=== PATIENT | female | born 1935 | race Caucasian/White ===

== ENCOUNTER 2017-03-26 10:45 | Emergency (ER) | payer MEDICARE, OTHER ==
--- NOTE | 2017-03-26 11:48 | EDM.PDOC ---
ED HPI GENERAL MEDICAL PROBLEM - General Chief Complaint: General Stated Complaint: weak, lightheaded Time Seen by Provider: 03/26/17 11:07 Source of Information: Reports: Patient History Limitations: Reports: No Limitations - History of Present Illness INITIAL COMMENTS - FREE TEXT/NARRATIVE: Patient is an 81-year-old female presents to the ER today from therapy with complaints of dizziness/lightheadedness for about the past week. She reports that she had an episode last Friday, 8 days ago, where she got so dizzy and lightheaded that she fell to the ground. Denies injury with the fall. Denied any chest pain, shortness of breath, diaphoresis, nausea, vomiting, or syncope at the time of the fall. Reports that since this episode she has felt "whoozy" and just not felt like herself. She reports that she has felt weak and unable to do her normal activities. She reports that she has had no recent illness. Denies any complaints other than feeling dizzy and weak. Denies any dysuria, but does report she typically experiences frequency and urgency as she is on Lasix. She reports that she was scheduled to have some rehabilitation today but when she got there she reported she was feeling too tired and felt like she couldn't participate. They then recommended that she be seen in the ER so she presented here. At the time of ER presentation patient denies any chest pain or any pain anywhere else. She denies any shortness of breath at rest, but does report that her baseline does include some shortness of breath with exertion. She reports this has may be been a little bit worse than normal. Denies any edema to her extremities at present. Does have a history of pedal edema, for which she has compression stocking on. Denies any nausea, vomiting, shortness of breath or any complaints outside of the dizziness and weakness at the time of ER presentation. Patient does report a history of a "tissue valve replacement" done at [facility] in the past. She is unsure which valve has been replaced. She is anticoagulated with warfarin, and her INR today is 2.7. 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 She daughter does report that on the last time she experienced cardiac symptoms, her troponin was also elevated and further workup indicated this may have been related to her bradycardia. Records are not obtainable by this administrative underwriter at this time. She also reports a history of anxiety. She reports that she does have a prescription for Xanax, but she has not taken this. She does feel slightly anxious at the time of ER visit. Onset Date: 03/18/17 Duration: Day(s): (8), Constant Quality: Reports: Other (lightheadedness, weakness) Improves with: Reports: None Worsens with: Reports: Movement Context: Reports: Activity Associated Symptoms: Reports: Shortness of Breath (with exertion, baseline), Weakness (generalized). Denies: Confusion, Chest Pain, Cough, cough w sputum, Diaphoresis, Fever/Chills, Headaches, Loss of Appetite, Malaise, Nausea/Vomiting , Rash, Seizure, Syncope - Related Data Allergies Allergy/AdvReac Type Severity Reaction Status Date / Time morphine Allergy Redness Verified 03/26/17 10:59 Penicillins Allergy Swelling Verified 03/26/17 10:59 Sulfa (Sulfonamide Allergy Rash Verified 03/26/17 10:59 Antibiotics) Home Meds: Home Meds Furosemide [Lasix] 40 mg PO DAILY 08/01/13 [History] Simvastatin [Zocor] 20 mg PO BEDTIME 08/01/13 [History] Warfarin [Coumadin] 3 mg PO WITHDINNER 08/01/13 [History] Levothyroxine [Synthroid] 125 mcg PO ACBREAKFAST 04/04/15 [History] Calcium Carbonate [Calcium] 1,200 mg PO DAILY 05/06/15 [History] ALPRAZolam [Xanax] 0.25 mg PO Q8H PRN 02/21/16 [History] amLODIPine Besylate [Amlodipine Besylate] 5 mg PO DAILY 02/21/16 [History] Aspirin [Ecotrin] 81 mg PO DAILY 02/05/17 [History] FA/Lycopene/Lut/MV,Ca,Iron,Min [Centrum] 1 each PO DAILY 02/05/17 [History] Propylene Glycol/PEG 400/Pf [Systane 0.3-0.4% Eye Drops] 1 each EYEBOTH BID 11/16 [History] Vitamin B Complex 1 each PO DAILY 02/05/17 [History] Ascorbate Calcium [Vitamin C] 500 mg PO DAILY 03/05/17 [History] Lutein 20 mg PO DAILY 03/26/17 [History] Past Medical History HEENT History: Reports: Cataract, Retinal Detachment Other HEENT History: has had nosebleeds in the past Cardiovascular History: Reports: Afib, Arrhythmia, Heart Valve Replacement, High Cholesterol, Hypertension Other Cardiovascular History: CHF in clinic chart records; had pacemaker checked on 02-20-16; had been attending Phase III self pay cardiac rehab; came to rehab on 01-24-16, just not feeling well generally; told [facility] staff, telemetry placed, sent to ER upon recommendation of clinic staff, having [place], sent by helicopter to [place]; had angiogram in [place], and pacemaker insertion while hospitalized in [place]; had an appointment with off for INR on 02-07-16 Gastrointestinal History: Reports: Diverticulosis Genitourinary History: Reports: UTI, 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: Musculoskeletal History: Reports: Osteoarthritis Psychiatric History: Reports: Anxiety Endocrine/Metabolic History: Reports: Hypothyroidism Hematologic History: Reports: Blood Transfusion(s) - Past Surgical History HEENT Surgical History: Reports: Cataract Surgery, Tonsillectomy Cardiovascular Surgical History: Reports: Valve Replacement GI Surgical History: Reports: Cholecystectomy, Colonoscopy Musculoskeletal Surgical History: Reports: Carpal Tunnel, Knee Replacement, Other (See Below) Social & Family History - Tobacco Use Smoking Status *Q: Never Smoker Second Hand Smoke Exposure: No - Alcohol Use Days Per Week of Alcohol Use: 0 - Recreational Drug Use Recreational Drug Use: No - Living Situation & Occupation Living situation: Reports: , with Spouse Occupation: Retired ED ROS GENERAL - Review of Systems Review Of Systems: See Below Constitutional: Reports: Weakness (generzlized), Fatigue. Denies: Fever, Chills , Malaise, Night Sweats, Diaphoresis, Decreased Appetite HEENT: Reports: No Symptoms Respiratory: Reports: Shortness of Breath (with exertion). Denies: Wheezing, Pleuritic Chest Pain, Cough, Sputum, Hemoptysis Cardiovascular: Reports: Dyspnea on Exertion, Edema (pedal, compression stockings), Lightheadedness. Denies: Chest Pain, Palpitations, Syncope Endocrine: Reports: Fatigue GI/Abdominal: Reports: No Symptoms. Denies: Abdominal Pain, Anorexia, Black Stool, Bloody Stool, Constipation, Diarrhea, Decreased Appetite, Hematemesis, Hematochezia, Melena, Nausea, Vomiting : Reports: Frequency, Incontinence, Urgency. Denies: Dysuria, Flank Pain, Hematuria Musculoskeletal: Reports: No Symptoms Skin: Reports: No Symptoms. Denies: Pallor, Diaphoresis, Rash Neurological: Reports: Dizziness, Weakness (generalized due to fatigue). Denies : Confusion, Headache, Numbness, Paresthesia, Pre-Existing Deficit, Seizure, Syncope, Tingling, Tremors, Trouble Speaking, Difficulty Walking, Change in Speech, Gait Disturbance Psychiatric: Reports: Anxiety. Denies: Agitation, Confusion, Depression, Mood Lability Hematologic/Lymphatic: Reports: No Symptoms, Easy Bleeding (from coumadin) Immunologic: Reports: No Symptoms ED EXAM, GENERAL - Physical Exam Exam: See Below Exam Limited By: No Limitations General Appearance: Alert, WD/WN, No Apparent Distress, Anxious Eye Exam: Bilateral Eye: EOMI, Normal Fundi, Normal Inspection, PERRL Ears: Normal External Exam, Normal Canal, Hearing Grossly Normal, Normal TMs Ear Exam: Bilateral Ear: Auricle Normal, Canal Normal, TM normal Nose: Normal Inspection, Normal Mucosa, No Blood Throat/Mouth: Normal Inspection, Normal Lips, Normal Teeth, Normal Gums, Normal Oropharynx, Normal Voice, No Airway Compromise Head: Atraumatic, Normocephalic. No: Sinus Tenderness Neck: Normal Inspection, Supple, Non-Tender, Full Range of Motion. No: Carotid Bruit, Lymphadenopathy (L), Lymphadenopathy (R) Respiratory/Chest: No Respiratory Distress, Lungs Clear, Normal Breath Sounds, No Accessory Muscle Use, Chest Non-Tender. No: Respiratory Distress, Wheezing, Pleural Rub Cardiovascular: Normal Peripheral Pulses, Regular Rate, Rhythm, No Edema, No Gallop, No JVD, No Murmur, No Rub Peripheral Pulses: 2+: Radial (L), Radial (R), Posterior Tibial (L), Posterior Tibial (R), Dorsalis Pedis (L), Dorsalis Pedis (R) GI/Abdominal: Normal Bowel Sounds, Soft, Non-Tender, No Organomegaly, No Distention, No Abnormal Bruit, No Mass (Female) Exam: Deferred Rectal (Female) Exam: Deferred Back Exam: Normal Inspection, Full Range of Motion, NT Extremities: Normal Inspection, Normal Range of Motion, Non-Tender, No Pedal Edema, Normal Capillary Refill. No: Pedal Edema Neurological: Alert, Oriented, CN II-XII Intact, Normal Cognition, Normal Gait, Normal Reflexes, No Motor/Sensory Deficits. No: Confused, Disoriented, Sensory/ Motor Deficit Psychiatric: Normal Affect, Normal Mood, Anxious Skin Exam: Warm, Dry, Intact, Normal Color, No Rash Lymphatic: No Adenopathy Course - Vital Signs Last Recorded V/S: Last Vital Signs Temp 98.3 F 03/26/17 12:06 Pulse 63 03/26/17 12:06 Resp 20 03/26/17 12:06 BP 141/79 H 03/26/17 12:06 Pulse Ox 98 03/26/17 12:06 - Orders/Labs/Meds Orders: Active Orders 24 hr Category Date Time Status Chest 2V [CR] Stat Exams 03/26/17 10:47 Taken Labs: Laboratory Tests 03/26/17 03/26/17 03/26/17 Range/Units 10:48 10:48 10:48 WBC 7.1 (5.0-10.0) 10^3/uL RBC 4.31 (4.00-5.50) 10^6/uL Hgb 14.1 (12.0-16.0) g/dL Hct 41.9 (37.0-47.0) % MCV 97.2 H (82.0-94.0) fL MCH 32.7 H (27.0-32.0) pg MCHC 33.7 (33.0-38.0) g/dL RDW Coeff of Johnson 12.5 (11.0-15.0) % Plt Count 310 (150-400) 10^3/uL Neut % (Auto) 50.9 (35-85) % Lymph % (Auto) 30.1 (10-55) % [place] % (Auto) 9.4 (0-16) % Eos % (Auto) 9.0 H (0-5) % Baso % (Auto) 0.6 (0-3) % Neut # (Auto) 3.61 (1.80-7.00) 10^3/uL Lymph # (Auto) 2.14 (1.00-4.80) 10^3/uL [place] # (Auto) 0.67 (0.00-0.80) 10^3/uL Eos # (Auto) 0.64 H (0.00-0.45) 10^3/uL Baso # (Auto) 0.04 10^3/uL PT 30.1 H (9.7-12.3) SEC INR 2.70 H (0.92-1.18) APTT 37.8 (20.0-45.0) SEC Sodium 140 (136-145) mEq/L Potassium 4.4 (3.5-5.0) mEq/L Chloride 105 (98-106) mEq/L Carbon Dioxide 28 (21-32) mmol/L BUN 17 (7-18) mg/dL Creatinine 1.0 (0.6-1.0) mg/dL Est Cr Clr Drug Dosing 40.38 mL/min Estimated GFR (MDRD) 53 L (>=60) mL/min Glucose 139 H (75-99) mg/dL Calcium 9.8 (8.4-10.1) mg/dL Lactate Dehydrogenase 264 H (100-190) U/L Creatine Kinase 104 (21-215) U/L Troponin I 2.066 H* (0.00-0.06) ng/mL Urine Color (YELLOW) Urine Appearance (CLEAR) Urine pH (4.5-8.0) Ur Specific Clementon (1.003-1.020) Urine Protein (NEGATIVE) mg/dL Urine Glucose (UA) (NEGATIVE) mg/dL Urine Ketones (NEGATIVE) mg/dL Urine Occult Blood (NEGATIVE) Urine Nitrite (NEGATIVE) Urine Bilirubin (NEGATIVE) Urine Urobilinogen (0.2-1.0) EU/dL Ur Leukocyte Esterase (NEGATIVE) Urine RBC (0-5) /HPF Urine WBC (0-5) /HPF Ur Squamous Epith Cells (NOT SEEN) /HPF 03/26/17 Range/Units 11:10 WBC (5.0-10.0) 10^3/uL RBC (4.00-5.50) 10^6/uL Hgb (12.0-16.0) g/dL Hct (37.0-47.0) % MCV (82.0-94.0) fL MCH (27.0-32.0) pg MCHC (33.0-38.0) g/dL RDW Coeff of Johnson (11.0-15.0) % Plt Count (150-400) 10^3/uL Neut % (Auto) (35-85) % Lymph % (Auto) (10-55) % [place] % (Auto) (0-16) % Eos % (Auto) (0-5) % Baso % (Auto) (0-3) % Neut # (Auto) (1.80-7.00) 10^3/uL Lymph # (Auto) (1.00-4.80) 10^3/uL Queens # (Auto) (0.00-0.80) 10^3/uL Eos # (Auto) (0.00-0.45) 10^3/uL Baso # (Auto) 10^3/uL PT (9.7-12.3) SEC INR (0.92-1.18) APTT (20.0-45.0) SEC Sodium (136-145) mEq/L Potassium (3.5-5.0) mEq/L Chloride (98-106) mEq/L Carbon Dioxide (21-32) mmol/L BUN (7-18) mg/dL Creatinine (0.6-1.0) mg/dL Est Cr Clr Drug Dosing mL/min Estimated GFR (MDRD) (>=60) mL/min Glucose (75-99) mg/dL Calcium (8.4-10.1) mg/dL Lactate Dehydrogenase (100-190) U/L Creatine Kinase (21-215) U/L Troponin I (0.00-0.06) ng/mL Urine Color Yellow (YELLOW) Urine Appearance Clear (CLEAR) Urine pH 5.5 (4.5-8.0) Ur Specific Clement[place] <= 1.005 (1.003-1.020) Urine Protein Negative (NEGATIVE) mg/dL Urine Glucose (UA) Negative (NEGATIVE) mg/dL Urine Ketones Negative (NEGATIVE) mg/dL Urine Occult Blood Trace-intact H (NEGATIVE) Urine Nitrite Negative (NEGATIVE) Urine Bilirubin Negative (NEGATIVE) Urine Urobilinogen 0.2 (0.2-1.0) EU/dL Ur Leukocyte Esterase Small H (NEGATIVE) Urine RBC 0-5 (0-5) /HPF Urine WBC 0-5 (0-5) /HPF Ur Squamous Epith Cells Occasional H (NOT SEEN) /HPF - Re-Assessments/Exams Free Text/Narrative Re-Assessment/Exam: 03/26/17 11:36 Dr. Dunaway (hospitalist at [facility]) accepted patient for transfer. 03/26/17 12:31 [facility] will transfer via ALS. Does have small amount of leukocyte esterase in urine. Recommend further treatment and workup at receiving facility. Departure - Departure Time of Disposition: 12:15 Disposition: DC/Tfer to Acute Hospital 02 Condition: Good Clinical Impression: NSTEMI (non-ST elevated myocardial infarction) - Discharge Information Referrals: PCP,None [Primary Care Provider] - Forms: ED Department Discharge
[2017-03-26 12:07] VITALS: BP 141/79
== END 2017-03-26 13:10 ==
LOC: CC.ED 10:45
DX: I21.4 Non-ST elevation (NSTEMI) myocardial infarction (principal); Z88.0 Allergy status to penicillin; Z88.2 Allergy status to sulfonamides; Z88.5 Allergy status to narcotic agent; Z79.899 Other long term (current) drug therapy
CPT/HCPCS: 36415; 71020; 80048; 81001; 82550; 83615; 84484; 85025; 85610; 85730; 93005; 93010; 99285

== ENCOUNTER 2017-07-21 00:22 | Observation (INO) | payer MEDICARE, OTHER ==
[2017-07-21] MEDS ORDERED: Ketorolac 60 MG/2 ML SDV IM ONE (01:12)
[2017-07-21] MEDS ORDERED: Acetaminophen 325 MG Tab PO ONE (01:14)
[2017-07-21] MEDS ORDERED: Levofloxacin 500 MG Tab PO SCH (01:15)
--- NOTE | 2017-07-21 01:22 | EDM.PDOC ---
ED HPI GENERAL MEDICAL PROBLEM - General Chief Complaint: Fever Stated Complaint: shaky and right low back pain Time Seen by Provider: 07/21/17 01:00 Source of Information: Reports: Patient History Limitations: Reports: No Limitations - History of Present Illness INITIAL COMMENTS - FREE TEXT/NARRATIVE: patient complains of right lower back pain that started 2 days ago and has progressively worsened. She also complains of chills. Onset: Gradual Onset Date: 07/19/17 Duration: Day(s): Front/Back Body Image: 1 - area of low back pain Quality: Reports: Stabbing Severity: Severe Improves with: Reports: None Worsens with: Reports: None Associated Symptoms: Reports: Fever/Chills Right Lower Back Pain Score (Numeric/FACES): 10 - Related Data Allergies Allergy/AdvReac Type Severity Reaction Status Date / Time morphine Allergy Redness Verified 07/21/17 00:31 Penicillins Allergy Swelling Verified 07/21/17 00:31 Sulfa (Sulfonamide Allergy Rash Verified 07/21/17 00:31 Antibiotics) Home Meds: Home Meds Furosemide [Lasix] 80 mg PO DAILY 08/01/13 [History] Simvastatin [Zocor] 20 mg PO BEDTIME 08/01/13 [History] Warfarin [Coumadin] 3 mg PO WITHDINNER 08/01/13 [History] Levothyroxine [Synthroid] 125 mcg PO ACBREAKFAST 04/04/15 [History] Calcium Carbonate [Calcium] 1,200 mg PO DAILY 05/06/15 [History] ALPRAZolam [Xanax] 0.25 mg PO Q8H PRN 02/21/16 [History] amLODIPine Besylate [Amlodipine Besylate] 5 mg PO DAILY 02/21/16 [History] Aspirin [Ecotrin] 81 mg PO DAILY 02/05/17 [History] FA/Lycopene/Lut/MV,Ca,Iron,Min [Centrum] 1 each PO DAILY 02/05/17 [History] Propylene Glycol/PEG 400/Pf [Systane 0.3-0.4% Eye Drops] 1 each EYEBOTH BID 11/16 [History] Vitamin B Complex 1 each PO DAILY 02/05/17 [History] Lutein 20 mg PO DAILY 03/26/17 [History] Allopurinol [Zyloprim] 100 mg PO DAILY 06/04/17 [History] Lisinopril 10 mg PO DAILY 06/04/17 [History] Metoprolol Succinate [Toprol XL] 25 mg PO DAILY 06/18/17 [History] Past Medical History HEENT History: Reports: Cataract, Retinal Detachment Other HEENT History: has had nosebleeds in the past Cardiovascular History: Reports: Afib, Arrhythmia, Heart Valve Replacement, High Cholesterol, Hypertension Other Cardiovascular History: CHF in clinic chart records; had pacemaker checked on 02-20-16; had been attending Phase III self pay cardiac rehab; came to rehab on 01-24-16, just not feeling well generally; told [facility] staff, telemetry placed, sent to ER upon recommendation of clinic staff, having [place], sent by helicopter to [place]; had angiogram in [place], and pacemaker insertion while hospitalized in [place]; had an appointment with [facility] for INR on 02-07-16 Gastrointestinal History: Reports: Diverticulosis Genitourinary History: Reports: UTI, 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: Musculoskeletal History: Reports: Osteoarthritis Psychiatric History: Reports: Anxiety Endocrine/Metabolic History: Reports: Hypothyroidism Hematologic History: Reports: Blood Transfusion(s) - Past Surgical History HEENT Surgical History: Reports: Cataract Surgery, Tonsillectomy Cardiovascular Surgical History: Reports: Valve Replacement GI Surgical History: Reports: Cholecystectomy, Colonoscopy Musculoskeletal Surgical History: Reports: Carpal Tunnel, Knee Replacement, Other (See Below) Social & Family History - Tobacco Use Smoking Status *Q: Never Smoker Second Hand Smoke Exposure: No - Alcohol Use Days Per Week of Alcohol Use: 0 - Recreational Drug Use Recreational Drug Use: No - Living Situation & Occupation Living situation: Reports: , with Spouse Occupation: Retired ED ROS GENERAL - Review of Systems Review Of Systems: See Below Constitutional: Reports: Fever, Chills HEENT: Reports: No Symptoms Respiratory: Reports: No Symptoms Cardiovascular: Reports: No Symptoms Endocrine: Reports: No Symptoms GI/Abdominal: Reports: No Symptoms : Reports: Dysuria, Frequency Musculoskeletal: Reports: No Symptoms, Back Pain Skin: Reports: No Symptoms Neurological: Reports: No Symptoms Psychiatric: Reports: No Symptoms Hematologic/Lymphatic: Reports: No Symptoms Immunologic: Reports: No Symptoms ED EXAM,LOWER BACK PAIN/INJURY - Physical Exam Exam: See Below Text/Narrative:: Appears in pain at this time. Exam Limited By: No Limitations General Appearance: Alert, WD/WN Ears: Normal External Exam Nose: Normal Inspection Throat/Mouth: Normal Inspection Head: Atraumatic Neck: Normal Inspection Respiratory/Chest: No Respiratory Distress Cardiovascular: Normal Peripheral Pulses GI/Abdominal: Normal Bowel Sounds Back Exam: Normal Inspection Extremities: Normal Inspection Neurological: Alert, Normal Mood/Affect Psychiatric: Normal Affect, Normal Mood Skin Exam: Warm, Dry Course - Vital Signs Last Recorded V/S: Last Vital Signs Temp 99.5 F 07/21/17 00:23 Pulse 89 07/21/17 00:23 Resp 20 07/21/17 00:23 BP 143/80 H 07/21/17 00:23 Pulse Ox 94 L 07/21/17 00:23 - Orders/Labs/Meds Orders: Active Orders 24 hr Category Date Time Status Patient Status Manage Transfer [TRANSFER] Routine ADT 07/21/17 01:29 Ordered UA W/MICROSCOPIC [URIN] Stat Lab 07/21/17 00:34 Ordered Levofloxacin [Levaquin] Med 07/21/17 01:15 Active 500 mg PO Q24H Levofloxacin/Dextrose 5%-Water [Levaquin in D5W 500 MG/ Med 07/21/17 01:45 Active 100 ML] 500 mg Premix Bag 1 bag IV Q24H Medication Orders Levofloxacin/Dextrose 500 mg/ (Premix) 100 mls @ 100 mls/hr IV Q24H MARIAM Levofloxacin (Levaquin) 500 mg PO Q24H MARIAM Last Admin: 07/21/17 01:17 Dose: 500 mg Meds: Medications Generic Name Dose Route Start Last Admin Trade Name Freq PRN Reason Stop Dose Admin Levofloxacin/Dextrose 500 mg/ 100 mls @ 100 mls/hr 07/21/17 01:45 Premix IV Q24H MARIAM Levofloxacin 500 mg 07/21/17 01:15 07/21/17 01:17 Levaquin PO 500 mg Q24H MARIAM Administration Discontinued Medications Generic Name Dose Route Start Last Admin Trade Name Freq PRN Reason Stop Dose Admin Acetaminophen 650 mg 07/21/17 01:14 07/21/17 01:17 Tylenol PO 07/21/17 01:15 650 mg Q4H ONE Administration Ketorolac Tromethamine 60 mg 07/21/17 01:12 07/21/17 01:18 Toradol IM 07/21/17 01:13 60 mg ONETIME ONE Administration Departure - Departure Time of Disposition: 01:29 (will obs overnight for fluids and pain control. will start antibiotics) Disposition: Refer to Observation Condition: Good Clinical Impression: UTI (urinary tract infection) - Discharge Information Forms: ED Department Discharge - My Orders Last 24 Hours: My Active Orders 07/21/17 00:34 UA W/MICROSCOPIC [URIN] Stat 07/21/17 01:15 Levofloxacin [Levaquin] 500 mg PO Q24H 07/21/17 01:29 Patient Status Manage Transfer [TRANSFER] Routine 07/21/17 01:45 Levofloxacin/Dextrose 5%-Water [Levaquin in D5W 500 MG/100 ML] 500 mg Premix Bag 1 bag IV Q24H - Assessment/Plan Last 24 Hours: My Active Orders 07/21/17 00:34 UA W/MICROSCOPIC [URIN] Stat 07/21/17 01:15 Levofloxacin [Levaquin] 500 mg PO Q24H 07/21/17 01:29 Patient Status Manage Transfer [TRANSFER] Routine 07/21/17 01:45 Levofloxacin/Dextrose 5%-Water [Levaquin in D5W 500 MG/100 ML] 500 mg Premix Bag 1 bag IV Q24H
[2017-07-21] MEDS ORDERED: Levofloxacin/Dextrose 5%-Water 500 MG in Premix Bag 1 BAG IV SCH ×2 (01:45→21:00)
[2017-07-21] MEDS ORDERED: traMADol 50 MG Tab PO PRN (02:13)
[2017-07-21] MEDS: Sodium Chloride 0.9% 1,000 ML IV SCH ×2 (02:38→13:43)
[2017-07-21] MEDS: cefTRIAXone 1 GM Vial IVPUSH SCH (02:38)
[2017-07-21] MEDS: Aspirin 81 MG Tab.EC PO SCH (08:33)
[2017-07-21] MEDS: **PTOM** Lisinopril 10 MG Tab PO SCH (08:33)
[2017-07-21] MEDS: **PTOM** Allopurinol 100 MG Tab PO SCH (08:33)
[2017-07-21] MEDS: **PTOM** Furosemide 40 MG Tab PO SCH (08:33)
[2017-07-21] MEDS: METOPROLOL SUCCINATE 25 MG PO SCH (08:33)
[2017-07-21] MEDS ORDERED: WARFARIN 3 MG PO SCH (17:30)
[2017-07-21] MEDS ORDERED: SIMVASTATIN 20 MG PO SCH (20:00)
[2017-07-22] MEDS: Sodium Chloride 0.9% 1,000 ML IV SCH (01:27)
[2017-07-22] MEDS: cefTRIAXone 1 GM Vial IVPUSH SCH (02:16)
[2017-07-22] MEDS ORDERED: LEVOTHYROXINE 125 MCG PO SCH (07:00)
--- NOTE | 2017-07-22 07:14 | PN ---
DATE: 07/21/2017 S: This 81-year-old female came in with acute UTI, shaking, and rigor. She was admitted to the hospital and started on IV antibiotics. Doing nicely this morning. O: NECK: Supple. CHEST: Clear. CARDIAC: Regular. ABDOMEN: Soft. ASSESSMENT: URINARY TRACT INFECTION. P: Continue IV antibiotics. Await culture. Watch her INR closely. SHUBHAM/IGNACIO /[id number]
[2017-07-22] MEDS: **PTOM** Furosemide 40 MG Tab PO SCH (07:42)
[2017-07-22] MEDS: Aspirin 81 MG Tab.EC PO SCH (07:42)
[2017-07-22] MEDS: **PTOM** Allopurinol 100 MG Tab PO SCH (07:44)
[2017-07-22] MEDS: **PTOM** Lisinopril 10 MG Tab PO SCH (07:50)
[2017-07-22] MEDS: METOPROLOL SUCCINATE 25 MG PO SCH (07:50)
[2017-07-22 07:51] VITALS: BP 130/89
[2017-07-22 08:03] LABS: CHLORIDE,CL 108 mEq/L (98-106); SODIUM,NA 140 mEq/L (136-145)
--- NOTE | 2017-07-22 09:58 | DISCH ---
HOSPITAL COURSE: Gwendolyn Hyatt came in, shaky, weak from a UTI. She has been now started on IV antibiotics, responded nicely. At the time of discharge, she said she felt great. On admission, CBCs looked good. Little bit anemic with her hemoglobin down to 11.8, probably dilutional. INR is a little bit high. So, we held her Coumadin. Urinalysis showed the UTI, panel looked good. DISPOSITION: The patient is now discharged home. She will be going home on just 1.5 mg of Coumadin because she is going to be on Levaquin and then have an INR back on 08/01. DISCHARGE MEDICATIONS: Include home medications except 1.5 mg of Coumadin rather than 3, Levaquin 500 mg daily for 7 days, and then she will discontinue her calcium. SHUBHAM/IGNACIO /[id number]
== END 2017-07-22 10:00 | disposition home or self-care (01) ==
LOC: CC.ED 00:22 → CC.MS 01:50 → UNDOADMOB 01:50 → CC.MS 02:12
PROVIDERS: ADMIT Nurse Practitioner Family; ATTEND General Practice
DX: N39.0 Urinary tract infection, site not specified (principal); F41.9 Anxiety disorder, unspecified; E03.9 Hypothyroidism, unspecified; I10 Essential (primary) hypertension; E78.00 Pure hypercholesterolemia, unspecified; Z88.0 Allergy status to penicillin; Z88.2 Allergy status to sulfonamides; Z88.8 Allergy status to other drugs, medicaments and biological substances; Z79.899 Other long term (current) drug therapy; Z79.01 Long term (current) use of anticoagulants; Z79.82 Long term (current) use of aspirin; Z95.2 Presence of prosthetic heart valve
CPT/HCPCS: 36415; 72100; 80048; 80053; 81001; 85025; 85027; 85610; 86140; 87086; 96361; 96365; 96372; 96375; 96376; 99284; A9270-GY; G0378; J0696; J1885; J1956; J7030

== ENCOUNTER 2019-02-01 08:33 | Emergency (ER) | payer MEDICARE, OTHER ==
[2019-02-01 08:44] VITALS: BP 147/86
[2019-02-01] MEDS ORDERED: methylPREDNISolone Acetate 80 MG/ML SDV ONE (08:58)
--- NOTE | 2019-02-01 09:03 | EDM.PDOC ---
ED HPI GENERAL MEDICAL PROBLEM - General Chief Complaint: Genitourinary Problem Stated Complaint: back pain, "I think I have a UTI" Time Seen by Provider: 02/01/19 08:48 Source of Information: Reports: Patient History Limitations: Reports: No Limitations - History of Present Illness INITIAL COMMENTS - FREE TEXT/NARRATIVE: This patent is an 83 year old female that presents to ER. Patient reports that started yesterday having left sided lower back pain. She reports the pain is in her left and right hips and central part of her back. Patient reports that she was concerned it was a bladder infection, because she has had one of those before. Patient does report that she does have a history of having lower back pain chronically, and has had sciatica before in the past. Patient reports that her pain goes into bilateral buttocks, left worse than right. She denies any falls or injuries. Patient denies numbness/tingling down her legs or to rectum to indicate saddle parathesia. Patient reports that at times her legs feel generally weak sometimes with the pain. Patient denies any urinary/bowel incontinence. Onset: Gradual Onset Date: 01/31/19 Duration: Day(s): (1) Location: Reports: Back Front/Back Body Image: 1 - pain, tenderness. 2 - pain, tenderness. Quality: Reports: Ache Severity: Moderate Improves with: Reports: None Worsens with: Reports: None Associated Symptoms: Denies: Confusion, Chest Pain, Cough, cough w sputum, Diaphoresis, Fever/Chills, Headaches, Loss of Appetite, Malaise, Nausea/Vomiting , Rash, Seizure, Shortness of Breath, Syncope, Weakness Lower Back Pain Score (Numeric/FACES): 5 - Related Data Allergies Allergy/AdvReac Type Severity Reaction Status Date / Time morphine Allergy Redness Verified 02/01/19 08:44 Penicillins Allergy Swelling Verified 02/01/19 08:44 Sulfa (Sulfonamide Allergy Rash Verified 02/01/19 08:44 Antibiotics) Home Meds: Home Meds Furosemide [Lasix] 40 mg PO DAILY 08/01/13 [History] Simvastatin [Zocor] 20 mg PO BEDTIME 08/01/13 [History] Levothyroxine [Synthroid] 125 mcg PO ACBREAKFAST 04/04/15 [History] Aspirin [Ecotrin EC] 81 mg PO DAILY 02/05/17 [History] Propylene Glycol/PEG 400/Pf [Systane 0.3-0.4% Eye Drop] 1 each EYEBOTH BID 02/05 [History] Vitamin B Complex 1 each PO DAILY 02/05/17 [History] Lutein 20 mg PO DAILY 03/26/17 [History] Allopurinol [Zyloprim] 300 mg PO DAILY 06/04/17 [History] Metoprolol Succinate [Toprol XL] 25 mg PO DAILY 06/18/17 [History] ALPRAZolam [Xanax] 0.25 mg PO Q8HR PRN 04/07/18 [History] FA/Lycopene/Lut/MV,Ca,Iron,Min [Centrum] 1 each PO DAILY 04/07/18 [History] Losartan Potassium 25 mg PO DAILY 04/07/18 [History] Warfarin Sodium [Coumadin] 3 mg PO DAILY 02/01/19 [History] Past Medical History HEENT History: Reports: Cataract, Retinal Detachment Other HEENT History: has had nosebleeds in the past Cardiovascular History: Reports: Afib, Arrhythmia, Heart Valve Replacement, High Cholesterol, Hypertension Other Cardiovascular History: CHF in clinic chart records; had pacemaker checked on 02-20-16; had been attending Phase III self pay cardiac rehab; came to rehab on 01-24-16, just not feeling well generally; told [facility] staff, telemetry placed, sent to ER upon recommendation of clinic staff, having [place], sent by helicopter to [place]; had angiogram in [place], and pacemaker insertion while hospitalized in [place]; had an appointment with [facility] for INR on 02-07-16 Gastrointestinal History: Reports: Diverticulosis Genitourinary History: Reports: UTI, Recurrent 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: Musculoskeletal History: Reports: Osteoarthritis Psychiatric History: Reports: Anxiety Endocrine/Metabolic History: Reports: Hypothyroidism Hematologic History: Reports: Blood Transfusion(s) - Past Surgical History HEENT Surgical History: Reports: Cataract Surgery, Tonsillectomy Cardiovascular Surgical History: Reports: Pacer, Valve Replacement GI Surgical History: Reports: Cholecystectomy, Colonoscopy Musculoskeletal Surgical History: Reports: Carpal Tunnel, Knee Replacement Social & Family History - Tobacco Use Smoking Status *Q: Never Smoker - Living Situation & Occupation Living situation: Reports: , with Spouse Occupation: Retired ED ROS GENERAL - Review of Systems Review Of Systems: See Below Constitutional: Reports: No Symptoms HEENT: Reports: No Symptoms Respiratory: Reports: No Symptoms Cardiovascular: Reports: No Symptoms. Denies: Chest Pain, Edema Endocrine: Reports: No Symptoms GI/Abdominal: Reports: No Symptoms. Denies: Abdominal Pain, Black Stool, Bloody Stool, Constipation, Diarrhea, Nausea, Vomiting : Reports: Frequency (less frequent). Denies: Discharge, Dysuria, Flank Pain , Hematuria, Incontinence, Pain, Urgency, Urinary Retention Musculoskeletal: Reports: Back Pain (lower). Denies: Neck Pain, Shoulder Pain, Arm Pain, Leg Pain, Foot Pain, Joint Pain, Muscle Stiffness Skin: Reports: No Symptoms Neurological: Reports: No Symptoms. Denies: Confusion, Dizziness, Headache, Numbness, Seizure, Syncope, Tingling, Tremors, Trouble Speaking, Difficulty Walking, Weakness, Change in Speech, Gait Disturbance Psychiatric: Reports: No Symptoms Hematologic/Lymphatic: Reports: No Symptoms Immunologic: Reports: No Symptoms ED EXAM,LOWER BACK PAIN/INJURY - Physical Exam Exam: See Below Exam Limited By: No Limitations General Appearance: Alert, WD/WN, No Apparent Distress Eye Exam: Bilateral Eye: Normal Inspection, PERRL Ears: Normal External Exam, Normal Canal, Hearing Grossly Normal, Normal TMs Nose: Normal Inspection, Normal Mucosa, No Blood Throat/Mouth: Normal Inspection, Normal Lips, Normal Teeth, Normal Gums, Normal Oropharynx, Normal Voice, No Airway Compromise Head: Atraumatic, Normocephalic Neck: Normal Inspection, Supple, Non-Tender, Full Range of Motion Respiratory/Chest: No Respiratory Distress, Lungs Clear, Normal Breath Sounds, No Accessory Muscle Use, Chest Non-Tender Cardiovascular: Normal Peripheral Pulses, Regular Rate, Rhythm, No Edema, No Gallop, No JVD, No Murmur, No Rub, Other (pacemaker) GI/Abdominal: Normal Bowel Sounds, Soft, Non-Tender, No Organomegaly, No Distention, No Abnormal Bruit, No Mass, Pelvis Stable. No: Distended, Guarding , Rigid, Rebound, Tender, Abnormal Bowel Sounds, Hernia, Mass, Hepatomegaly, Splenomegaly (Female) Exam: Deferred Rectal (Female) Exam: Deferred Back Exam: Normal Inspection, Paraspinal Tenderness (right and left, left more than right. Also, pain, tenderness to the buttock bilaterally over the sciatic nerves, left worse than right. ), Vertebral Tenderness (very mild lumbar mid. no stepoffs. ), Other (The pain that the patient is having is easily manipulated on exam. ). No: CVA Tenderness (L), CVA Tenderness (R), Decreased Range of Motion, Muscle Spasm Extremities: Normal Inspection, Normal Range of Motion, Non-Tender, No Pedal Edema, Normal Capillary Refill Neurological: Alert, Normal Mood/Affect, Normal Gait, Normal Reflexes, No Motor/ Sensory Deficits (no weaknesses to the BLE. Equal strengths. No foot or leg drops. Sensation fully intact. Pulses +2, cap refill < 2 sec, sensory/motor function intact. ), Oriented x 3, Straight Leg Raise (L) (normal without difficulty), Straight Leg Raise (R) (normal without difficulty). No: Difficulty Walking DTR - Lower Extremities: 2+: Knee (R), Knee (L) Psychiatric: Normal Affect, Normal Mood Skin Exam: Warm, Dry, Intact, Normal Color, No Rash Lymphatic: No Adenopathy Course - Vital Signs Last Recorded V/S: Last Vital Signs Temp 96.6 F 02/01/19 08:35 Pulse 92 02/01/19 08:35 Resp 16 02/01/19 08:35 BP 147/86 H 02/01/19 08:35 Pulse Ox 98 02/01/19 08:35 - Orders/Labs/Meds Orders: Active Orders 24 hr Category Date Time Status Lumbar Spine 2 or 3V [CR] Stat Exams 02/01/19 08:56 Taken Labs: Laboratory Tests 02/01/19 Range/Units 08:38 Urine Color Light yellow (YELLOW) Urine Appearance Clear (CLEAR) Urine pH 6.0 (4.5-8.0) Ur Specific [place] 1.010 (1.003-1.020) Urine Protein Negative (NEGATIVE) mg/dL Urine Glucose (UA) Negative (NEGATIVE) mg/dL Urine Ketones Negative (NEGATIVE) mg/dL Urine Occult Blood Trace-lysed H (NEGATIVE) Urine Nitrite Negative (NEGATIVE) Urine Bilirubin Negative (NEGATIVE) Urine Urobilinogen 0.2 (0.2-1.0) EU/dL Ur Leukocyte Esterase Negative (NEGATIVE) Urine RBC 0-5 (0-5) /HPF Urine WBC Not seen (0-5) /HPF Ur Epithelial Cells Few H (NOT SEEN) /HPF Urine Bacteria Few H (NOT SEEN) /HPF Meds: Medications Discontinued Medications Generic Name Dose Route Start Last Admin Trade Name Trevin PRN Reason Stop Dose Admin Acetaminophen 1,000 mg 02/01/19 09:08 02/01/19 09:15 Tylenol Extra Strength PO 02/01/19 09:09 1,000 mg ONETIME ONE Administration Methylprednisolone Acetate 80 mg 02/01/19 09:08 02/01/19 09:27 Depo-Medrol IM 02/01/19 09:09 80 mg ONETIME ONE Administration Methylprednisolone Acetate Confirm 02/01/19 08:58 02/01/19 09:28 Depo-Medrol Administered 02/01/19 08:59 Not Given Dose 80 mg .ROUTE .STK-MED ONE - Radiology Interpretation Free Text/Narrative:: Lumbar Xray: No fx. Hardware in place. - Re-Assessments/Exams Free Text/Narrative Re-Assessment/Exam: 02/01/19 09:13 Patient is ambulatory within the department. Educated when to return to the ER and that she needs to see her PCP. She voices back understanding. Medications given in ER explained to the patient and she agrees to take them. Departure - Departure Time of Disposition: 09:35 Disposition: Home, Self-Care 01 Condition: Fair Clinical Impression: Lumbar radiculopathy, acute - Discharge Information *PRESCRIPTION DRUG MONITORING PROGRAM REVIEWED*: Not Applicable *COPY OF PRESCRIPTION DRUG MONITORING REPORT IN PATIENT RASHAUN: Not Applicable Instructions: Radicular Pain, Back Exercises, [id number] Forms: ED Department Discharge Additional Instructions: Followup with your primary care provider If the pain continues or you develop numbness/pain/tingling/weakness in a leg, you will need an MRI of the lower back Please return to the ER for worsening of condition or any emergent concerns such as listed above or urinary or bowel incontinence or any other concerns Go about your normal activity, but no lifting greater than 5lbs May take Tylenol or IbuProfen for pain. 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
[2019-02-01] MEDS ORDERED: Acetaminophen 500 MG Tab PO ONE (09:08)
[2019-02-01] MEDS ORDERED: methylPREDNISolone Acetate 80 MG/ML SDV IM ONE (09:08)
== END 2019-02-01 09:45 | disposition home or self-care (01) ==
LOC: CC.ED 08:33
DX: M54.16 Radiculopathy, lumbar region (principal); I11.0 Hypertensive heart disease with heart failure; I50.9 Heart failure, unspecified; E03.9 Hypothyroidism, unspecified; E78.00 Pure hypercholesterolemia, unspecified; F41.9 Anxiety disorder, unspecified; I25.2 Old myocardial infarction; Z88.0 Allergy status to penicillin; Z88.5 Allergy status to narcotic agent; Z88.2 Allergy status to sulfonamides; Z79.82 Long term (current) use of aspirin; Z79.01 Long term (current) use of anticoagulants; Z79.899 Other long term (current) drug therapy
CPT/HCPCS: 72100; 81001; 96372; 99283-25; A9270-GY; J1040

== ENCOUNTER 2019-08-14 09:47 | Observation (INO) | payer MEDICARE, OTHER ==
[2019-08-14 10:17] LABS: CHLORIDE,CL 103 mEq/L (98-106); SODIUM,NA 138 mEq/L (136-145)
[2019-08-14] MEDS ORDERED: Ondansetron 4 MG/2 ML SDV IV PRN (15:17)
[2019-08-14] MEDS ORDERED: ALPRAZolam 0.25 MG Tab **OWN MED PO PRN (15:25)
[2019-08-14] MEDS ORDERED: Sodium Chloride 0.9% 500 ML IV SCH (15:30)
[2019-08-14] MEDS: cefTRIAXone 1 GM Vial IVPUSH SCH (16:26)
[2019-08-14] MEDS ORDERED: ALPRAZolam 0.25 MG Tab PO PRN (19:01)
[2019-08-14] MEDS: Aspirin 81 MG Tab.EC **OWN MED PO SCH (19:49)
[2019-08-14] MEDS: Simvastatin 20 MG Tab **OWN MED PO SCH (19:49)
[2019-08-14] MEDS: WARFARIN SODIUM 3 MG PO SCH (19:49)
[2019-08-14] MEDS: Polyvinyl Alcohol 1.4% Ophth Soln 15 ML Bottle EYEBOTH SCH (19:50)
[2019-08-15] MEDS: Levothyroxine 125 MCG Tab **OWN MED PO SCH (07:31)
[2019-08-15] MEDS: Losartan 25 MG Tab **OWN MED PO SCH (07:38)
[2019-08-15] MEDS: Allopurinol 300 MG Tab **OWN MED PO SCH (07:39)
[2019-08-15] MEDS: Furosemide 40 MG Tab **OWN MED PO SCH (07:39)
[2019-08-15] MEDS: Metoprolol Succinate 25 MG Tab.ER **OWN MED PO SCH (07:40)
[2019-08-15] MEDS: Multivitamin Tab PO SCH (07:41)
[2019-08-15] MEDS: Polyvinyl Alcohol 1.4% Ophth Soln 15 ML Bottle EYEBOTH SCH ×2 (07:41→19:51)
[2019-08-15] MEDS: Vitamin B Complex Cap PO SCH (07:41)
[2019-08-15] MEDS ORDERED: Non-Formulary Medication 1 Each (Lutein [Lutein] 20 MG) PO SCH (08:00)
[2019-08-15] MEDS ORDERED: Furosemide 40 MG/4 ML VIAL IVPUSH ONE (09:25)
--- NOTE | 2019-08-15 09:44 | PCM.PN ---
- General Info Date of Service: 08/15/19 Functional Status: Reports: Pain Controlled, Tolerating Diet, Ambulating, Urinating - Review of Systems General: Reports: Weakness (generalized), Malaise. Denies: Fever HEENT: Reports: No Symptoms Pulmonary: Reports: Shortness of Breath (mild, no change from baseline per patient), Cough. Denies: Sputum Cardiovascular: Reports: No Symptoms. Denies: Chest Pain, Dyspnea on Exertion, Edema, Lightheadedness Gastrointestinal: Reports: No Symptoms. Denies: Abdominal Pain, Nausea, Vomiting Genitourinary: Reports: No Symptoms Musculoskeletal: Reports: No Symptoms Skin: Reports: No Symptoms Neurological: Reports: No Symptoms Psychiatric: Reports: No Symptoms - Patient Data Vitals - Most Recent: Last Vital Signs Temp 97.7 F 08/15/19 07:57 Pulse 63 08/15/19 07:57 Resp 18 08/15/19 07:57 BP 133/84 08/15/19 07:57 Pulse Ox 98 08/15/19 07:57 Weight - Most Recent: 184 lb 11.2 oz Lab Results Last 24 Hours: Laboratory Results - last 24 hr 08/14/19 08/14/19 08/14/19 Range/Units 09:51 09:51 09:51 WBC 8.3 (5.0-10.0) 10^3/uL RBC 3.64 L (4.00-5.50) 10^6/uL Hgb 12.7 (12.0-16.0) g/dL Hct 38.0 (37.0-47.0) % MCV 104.4 H (82.0-94.0) fL MCH 34.9 H (27.0-32.0) pg MCHC 33.4 (33.0-38.0) g/dL RDW Coeff of Johnson 13.0 (11.0-15.0) % Plt Count 221 (150-400) 10^3/uL Neut % (Auto) 68.3 (35-85) % Lymph % (Auto) 15.8 (10-55) % Bartholomew % (Auto) 11.9 (0-16) % Eos % (Auto) 3.4 (0-5) % Baso % (Auto) 0.6 (0-3) % Neut # (Auto) 5.69 (1.80-7.00) 10^3/uL Lymph # (Auto) 1.32 (1.00-4.80) 10^3/uL Bartholomew # (Auto) 0.99 H (0.00-0.80) 10^3/uL Eos # (Auto) 0.28 (0.00-0.45) 10^3/uL Baso # (Auto) 0.05 10^3/uL PT (9.7-12.3) SEC INR (0.92-1.18) Sodium 138 (136-145) mEq/L Potassium 4.4 (3.5-5.0) mEq/L Chloride 103 (98-106) mEq/L Carbon Dioxide 28 (21-32) mmol/L BUN 18 (7-18) mg/dL Creatinine 0.9 (0.6-1.0) mg/dL Est Cr Clr Drug Dosing TNP Estimated GFR (MDRD) 60 (>=60) mL/min Glucose 171 H D (75-99) mg/dL Lactic Acid (0.4-2.0) mmol/L Calcium 9.5 (8.4-10.1) mg/dL Total Bilirubin 0.7 (0.0-1.0) mg/dL AST 16 (15-37) U/L ALT 20 (12-78) U/L Alkaline Phosphatase 51 (46-116) U/L NT-Pro-B Natriuret Pep (0-1000) pg/mL Total Protein 7.0 (6.4-8.2) g/dL Albumin 3.6 (3.4-5.0) g/dL Urine Color Light yellow (YELLOW) Urine Appearance Slightly cloudy (CLEAR) Urine pH 6.5 (4.5-8.0) Ur Specific [place] 1.015 (1.003-1.020) Urine Protein Negative (NEGATIVE) mg/dL Urine Glucose (UA) Negative (NEGATIVE) mg/dL Urine Ketones Negative (NEGATIVE) mg/dL Urine Occult Blood Large H (NEGATIVE) Urine Nitrite Negative (NEGATIVE) Urine Bilirubin Negative (NEGATIVE) Urine Urobilinogen 0.2 (0.2-1.0) EU/dL Ur Leukocyte Esterase Small H (NEGATIVE) Urine RBC 10-20 H (0-5) /HPF Urine WBC 0-5 (0-5) /HPF Ur Epithelial Cells Few H (NOT SEEN) /HPF 03/14/20 03/14/20 03/14/20 Range/Units 09:51 09:51 10:54 WBC (5.0-10.0) 10^3/uL RBC (4.00-5.50) 10^6/uL Hgb (12.0-16.0) g/dL Hct (37.0-47.0) % MCV (82.0-94.0) fL MCH (27.0-32.0) pg MCHC (33.0-38.0) g/dL RDW Coeff of Johnson (11.0-15.0) % Plt Count (150-400) 10^3/uL Neut % (Auto) (35-85) % Lymph % (Auto) (10-55) % Bartholomew % (Auto) (0-16) % Eos % (Auto) (0-5) % Baso % (Auto) (0-3) % Neut # (Auto) (1.80-7.00) 10^3/uL Lymph # (Auto) (1.00-4.80) 10^3/uL Bartholomew # (Auto) (0.00-0.80) 10^3/uL Eos # (Auto) (0.00-0.45) 10^3/uL Baso # (Auto) 10^3/uL PT 16.7 H (9.7-12.3) SEC INR 1.67 H (0.92-1.18) Sodium (136-145) mEq/L Potassium (3.5-5.0) mEq/L Chloride (98-106) mEq/L Carbon Dioxide (21-32) mmol/L BUN (7-18) mg/dL Creatinine (0.6-1.0) mg/dL Est Cr Clr Drug Dosing Estimated GFR (MDRD) (>=60) mL/min Glucose (75-99) mg/dL Lactic Acid 2.7 H (0.4-2.0) mmol/L Calcium (8.4-10.1) mg/dL Total Bilirubin (0.0-1.0) mg/dL AST (15-37) U/L ALT (12-78) U/L Alkaline Phosphatase (46-116) U/L NT-Pro-B Natriuret Pep 3477 H (0-1000) pg/mL Total Protein (6.4-8.2) g/dL Albumin (3.4-5.0) g/dL Urine Color (YELLOW) Urine Appearance (CLEAR) Urine pH (4.5-8.0) Ur Specific [place] (1.003-1.020) Urine Protein (NEGATIVE) mg/dL Urine Glucose (UA) (NEGATIVE) mg/dL Urine Ketones (NEGATIVE) mg/dL Urine Occult Blood (NEGATIVE) Urine Nitrite (NEGATIVE) Urine Bilirubin (NEGATIVE) Urine Urobilinogen (0.2-1.0) EU/dL Ur Leukocyte Esterase (NEGATIVE) Urine RBC (0-5) /HPF Urine WBC (0-5) /HPF Ur Epithelial Cells (NOT SEEN) /HPF 08/15/19 08/15/19 Range/Units 07:00 07:00 WBC 7.4 (5.0-10.0) 10^3/uL RBC 3.28 L (4.00-5.50) 10^6/uL Hgb 11.5 L (12.0-16.0) g/dL Hct 34.2 L (37.0-47.0) % MCV 104.3 H (82.0-94.0) fL MCH 35.1 H (27.0-32.0) pg MCHC 33.6 (33.0-38.0) g/dL RDW Coeff of Johnson 12.9 (11.0-15.0) % Plt Count 209 (150-400) 10^3/uL Neut % (Auto) 48.4 (35-85) % Lymph % (Auto) 31.9 (10-55) % Bartholomew % (Auto) 13.8 (0-16) % Eos % (Auto) 5.1 H (0-5) % Baso % (Auto) 0.8 (0-3) % Neut # (Auto) 3.57 (1.80-7.00) 10^3/uL Lymph # (Auto) 2.36 (1.00-4.80) 10^3/uL Bartholomew # (Auto) 1.02 H (0.00-0.80) 10^3/uL Eos # (Auto) 0.38 (0.00-0.45) 10^3/uL Baso # (Auto) 0.06 10^3/uL PT (9.7-12.3) SEC INR (0.92-1.18) Sodium 139 (136-145) mEq/L Potassium 4.4 (3.5-5.0) mEq/L Chloride 106 (98-106) mEq/L Carbon Dioxide 26 (21-32) mmol/L BUN 15 (7-18) mg/dL Creatinine 0.9 (0.6-1.0) mg/dL Est Cr Clr Drug Dosing 43.37 Estimated GFR (MDRD) 60 (>=60) mL/min Glucose 111 H D (75-99) mg/dL Lactic Acid (0.4-2.0) mmol/L Calcium 8.7 (8.4-10.1) mg/dL Total Bilirubin (0.0-1.0) mg/dL AST (15-37) U/L ALT (12-78) U/L Alkaline Phosphatase (46-116) U/L NT-Pro-B Natriuret Pep (0-1000) pg/mL Total Protein (6.4-8.2) g/dL Albumin (3.4-5.0) g/dL Urine Color (YELLOW) Urine Appearance (CLEAR) Urine pH (4.5-8.0) Ur Specific [place] (1.003-1.020) Urine Protein (NEGATIVE) mg/dL Urine Glucose (UA) (NEGATIVE) mg/dL Urine Ketones (NEGATIVE) mg/dL Urine Occult Blood (NEGATIVE) Urine Nitrite (NEGATIVE) Urine Bilirubin (NEGATIVE) Urine Urobilinogen (0.2-1.0) EU/dL Ur Leukocyte Esterase (NEGATIVE) Urine RBC (0-5) /HPF Urine WBC (0-5) /HPF Ur Epithelial Cells (NOT SEEN) /HPF Teodoro Results Last 24 Hours: Microbiology 08/14/19 09:51 Urine Culture - Preliminary Urine, Voided Gram Negative Rods Med Orders - Current: Current Medications Allopurinol (Zyloprim) 300 mg PO DAILY [facility] Last Admin: 08/15/19 07:39 Dose: 300 mg Alprazolam (Xanax) 0.25 mg PO Q8H PRN PRN Reason: Anxiety Artificial Tears (Liquitears 1.4% Ophth Soln) 0 ml EYEBOTH BID [facility] Last Admin: 08/15/19 07:41 Dose: 1 drop Aspirin (Halfprin) 81 mg PO BEDTIME [facility] Last Admin: 08/14/19 19:49 Dose: 81 mg Ceftriaxone Sodium (Rocephin) 1 gm IVPUSH Q24H [facility] Last Admin: 08/14/19 16:26 Dose: 1 gm Furosemide (Lasix) 40 mg PO DAILY [facility] Last Admin: 08/15/19 07:39 Dose: 40 mg Furosemide (Lasix) 40 mg IVPUSH ONETIME ONE Stop: 08/15/19 09:26 Levothyroxine Sodium (Levothyroxine) 125 mcg PO ACBREAKFAST [facility] Last Admin: 08/15/19 07:31 Dose: 125 mcg Losartan Potassium (Cozaar) 25 mg PO DAILY [facility] Last Admin: 08/15/19 07:38 Dose: 25 mg Metoprolol Succinate (Toprol Xl) 25 mg PO DAILY [facility] Last Admin: 08/15/19 07:40 Dose: 25 mg Multivitamins/Minerals/Vitamin C (Tab-A-Rain) 1 tab PO DAILY [facility] Last Admin: 08/15/19 07:41 Dose: Not Given Non-Formulary Medication (Lutein [Lutein]) 20 mg PO DAILY [facility] Warfarin Sodium 3 Mg (Own Med) 0 mg PO BEDTIME [facility] Last Admin: 08/14/19 19:49 Dose: 3 mg Ondansetron HCl (Zofran) 4 mg IV Q6H PRN PRN Reason: Nausea/Vomiting Simvastatin (Zocor) 20 mg PO BEDTIME [facility] Last Admin: 08/14/19 19:49 Dose: 20 mg Vitamin B Complex (Vitamin B Complex) 1 each PO DAILY [facility] Last Admin: 08/15/19 07:41 Dose: Not Given Discontinued Medications Alprazolam (Xanax) 0.25 mg PO Q8H PRN PRN Reason: Anxiety Sodium Chloride (Normal Saline) 500 mls @ 500 mls/hr IV BOLUS [facility] Stop: 08/14/19 16:29 Last Admin: 08/14/19 16:24 Dose: 500 mls/hr - Exam General: Alert, Oriented, Cooperative, No Acute Distress Lungs: Clear to Auscultation, Normal Respiratory Effort. No: Decreased Breath Sounds, Crackles, Rales, Rhonchi, Wheezing Cardiovascular: Regular Rate, Regular Rhythm GI/Abdominal Exam: Soft, Non-Tender Back Exam: Normal Inspection, Full Range of Motion Extremities: Normal Inspection, Normal Range of Motion, Non-Tender, No Pedal Edema, Normal Capillary Refill Peripheral Pulses: 2+: Radial (L), Radial (R), Posterior Tibial (L), Posterior Tibial (R), Dorsalis Pedis (L), Dorsalis Pedis (R) Skin: Warm, Dry, Intact Neurological: No New Focal Deficit, Normal Gait, Normal Speech, Sensation Intact Psy/Mental Status: Alert, Normal Affect, Normal Mood EKG INTERPRETATION EKG Date: 08/14/19 Time: 11:00 Rhythm: Other (Electronic Ventricular Pacemaker) Rate (Beats/Min): 65 Sepsis Event Note - Evaluation Sepsis Screening Result: No Definite Risk - Focused Exam Vital Signs: Vital Signs Temp Pulse Pulse Resp BP BP Pulse Ox 08/15/19 07:57 97.7 F 63 18 133/84 98 08/15/19 07:40 63 133/84 08/15/19 07:38 133/84 08/15/19 00:00 99.5 F 82 20 146/84 H 98 Date Exam was Performed: 08/15/19 Time Exam was Performed: 22:39 - Problem List Review Problem List Initiated/Reviewed/Updated: Yes - My Orders Last 24 Hours: My Active Orders 08/14/19 09:51 CULTURE BLOOD [BC] Routine CULTURE URINE [RM] Routine 08/14/19 12:00 Patient Status [ADT] Routine 08/14/19 15:17 Height and Weight [RC] 0500 Oxygen Therapy [RC] .PRN Up to Chair [RC] .PRN Vital Signs [RC] 0000,0400,0800,1200,1600,2000 Ondansetron [Zofran] 4 mg IV Q6H PRN Resuscitation Status Routine 08/14/19 15:21 Antiembolic Hose [OM.PC] Per Unit Routine 08/14/19 15:22 Antiembolic Devices [RC] 1000,2200 08/14/19 16:00 cefTRIAXone [Rocephin] 1 gm IVPUSH Q24H 08/14/19 19:01 ALPRAZolam [Xanax] 0.25 mg PO Q8H PRN 08/14/19 20:00 Aspirin [Halfprin] 81 mg PO BEDTIME Polyvinyl Alcohol [LiquiTears 1.4% Ophth Soln] 0 ml EYEBOTH BID Simvastatin [Zocor] 20 mg PO BEDTIME Warfarin Sodium 0 mg PO BEDTIME 08/14/19 Dinner 2 Gram Sodium Diet [DIET] 08/15/19 07:00 Levothyroxine 125 mcg PO ACBREAKFAST 08/15/19 08:00 Furosemide [Lasix] 40 mg PO DAILY Losartan [Cozaar] 25 mg PO DAILY Lutein [Lutein] 20 mg PO DAILY Metoprolol Succinate [Toprol XL] 25 mg PO DAILY Multivitamins [Tab-A-Rain] 1 tab PO DAILY Vitamin B Complex 1 each PO DAILY allopurinoL [Zyloprim] 300 mg PO DAILY 08/15/19 09:25 Furosemide [Lasix] 40 mg IVPUSH ONETIME ONE 08/16/19 05:00 BASIC METABOLIC PANEL,BMP [CHEM] DAILY CBC WITH AUTO DIFF [HEME] DAILY 08/16/19 11:00 Echo Comp wo Cont [US] Routine - Plan Plan:: This patient was admitted yesterday from clinic for UTI and general weakness. Patient reports that today she is feeling a little better. She reports she has a little more energy. She has been able to get up from bed and ambulate to the bathroom. The patient urine yesterday did not have wbc in urine, but the culture is growing gram negative. Therefore, will continue the admit and Rocephin and wait on abx report. Labs are unremarkable other [place]. Except for her BNP is elevated. Her CXR does also show pulmonary vascular congestion. She has known history of CHF. I will give her a x1 dose of Lasix 40mg IV. She has extremity edema. Will continue abx, her PO lasix, echo tomorrow, and admit.
[2019-08-15] MEDS: cefTRIAXone 1 GM Vial IVPUSH SCH (16:00)
[2019-08-15] MEDS: WARFARIN SODIUM 3 MG PO SCH (19:51)
[2019-08-15] MEDS: Aspirin 81 MG Tab.EC **OWN MED PO SCH (19:51)
[2019-08-15] MEDS: Simvastatin 20 MG Tab **OWN MED PO SCH (19:52)
[2019-08-15] MEDS ORDERED: Aspirin 81 MG Tab.EC **OWN MED PO SCH (20:00)
[2019-08-16] MEDS: Levothyroxine 125 MCG Tab **OWN MED PO SCH (07:04)
[2019-08-16] MEDS: Vitamin B Complex Cap PO SCH (07:53)
[2019-08-16] MEDS: Multivitamin Tab PO SCH (07:53)
[2019-08-16] MEDS: Losartan 25 MG Tab **OWN MED PO SCH (07:54)
[2019-08-16] MEDS: Furosemide 40 MG Tab **OWN MED PO SCH (07:54)
[2019-08-16] MEDS: Polyvinyl Alcohol 1.4% Ophth Soln 15 ML Bottle EYEBOTH SCH (07:55)
[2019-08-16] MEDS: Allopurinol 300 MG Tab **OWN MED PO SCH (07:55)
[2019-08-16] MEDS: Metoprolol Succinate 25 MG Tab.ER **OWN MED PO SCH (07:55)
[2019-08-16 13:27] VITALS: BP 119/70; PULSE 86
[2019-08-16] MEDS: cefTRIAXone 1 GM Vial IVPUSH SCH (14:45)
--- NOTE | 2019-08-16 15:34 | PCM.DCSUM1 ---
Discharge Summary - Hospital Course Free Text/Narrative:: Gwendolyn is an 83 year old female who presents to clinic for follow up on her UTI. Had been on Macrobid which had caused nausea, upset stomach and dizziness. Was switched to Cipro as a result. Has not noted it to be getting any better. Now has hematuria and pelvic pain. Increased nocturia. Feeling weak and drained. WBC normal. UA positive for leukocytes, blood. ProBNP 3477. Admitted for IV fluids and antibiotics. Diagnosis: Stroke: No Modified Mingo Scale: No Symptoms at All Modified Mingo Scale Score: 0 - Discharge Data Discharge Date: 08/16/19 Discharge Disposition: Home, Self-Care 01 Condition: Good - Referral to Home Health Primary Care Physician: Conrad Morales NP - Patient Summary/Data Complications: none Hospital Course: Patient is feeling better. Feels stronger. Is ambulating short distances without concern. Was given IV Lasix for fluid overload, states voided a great deal after that. Has been taking her Lasix but admits had not been watching her salt intake. Edema is resolved, does not feel short of breath. No nausea or vomiting. Appetite is good. Lung sounds are clear. Abdomen is soft, nontender. WBC is normal. Urine culture was positive for e coli, sensitive to cephalosporins. Did discuss possibly seeing urology/obtaining renal bladder ultrasound. Gwendolyn Schmidt aware, will discuss at her follow up visit. discharge home on Ceftin. - Patient Instructions Diet: Low Sodium Activity: As Tolerated - Discharge Plan *PRESCRIPTION DRUG MONITORING PROGRAM REVIEWED*: No *COPY OF PRESCRIPTION DRUG MONITORING REPORT IN PATIENT RASHAUN: No Prescriptions/Med Rec: Cefuroxime Axetil [Ceftin] 250 mg PO BID #20 tablet Home Medications: Home Meds Furosemide [Lasix] 40 mg PO DAILY 08/01/13 [History] Simvastatin [Zocor] 20 mg PO BEDTIME 08/01/13 [History] Levothyroxine [Synthroid] 125 mcg PO ACBREAKFAST 04/04/15 [History] Aspirin [Ecotrin EC] 81 mg PO DAILY 02/05/17 [History] Propylene Glycol/PEG 400/Pf [Systane 0.3-0.4% Eye Drop] 1 each EYEBOTH BID 02/05 [History] Vitamin B Complex 1 each PO DAILY 02/05/17 [History] Lutein 20 mg PO DAILY 03/26/17 [History] Allopurinol [Zyloprim] 300 mg PO DAILY 06/04/17 [History] Metoprolol Succinate [Toprol XL] 25 mg PO DAILY 06/18/17 [History] ALPRAZolam [Xanax] 0.25 mg PO Q8HR PRN 04/07/18 [History] FA/Lycopene/Lut/MV,Ca,Iron,Min [Centrum] 1 each PO DAILY 04/07/18 [History] Losartan Potassium 25 mg PO DAILY 04/07/18 [History] Warfarin Sodium [Coumadin] 3 mg PO DAILY 02/01/19 [History] Cefuroxime Axetil [Ceftin] 250 mg PO BID #20 tablet 08/16/19 [Rx] Referrals: Gwendolyn Schmidt PA-C [ED Midlevel Provider] - - Discharge Summary/Plan Comment DC Time >30 min.: No - General Info Date of Service: 08/16/19 Admission Dx/Problem (Free Text: UTI Functional Status: Reports: Pain Controlled, Tolerating Diet, Ambulating - Review of Systems General: Reports: Weakness, Fatigue, Malaise. Denies: Fever HEENT: Reports: No Symptoms Pulmonary: Denies: Shortness of Breath, Cough Cardiovascular: Denies: Chest Pain, Edema, Lightheadedness Gastrointestinal: Denies: Abdominal Pain, Nausea, Vomiting Genitourinary: Reports: Frequency Musculoskeletal: Reports: No Symptoms Skin: Reports: No Symptoms Neurological: Reports: Weakness - Patient Data Vitals - Most Recent: Last Vital Signs Temp 99.1 F 08/16/19 12:00 Pulse 86 08/16/19 12:00 Resp 18 08/16/19 12:00 BP 119/70 08/16/19 12:00 Pulse Ox 98 08/16/19 12:00 Weight - Most Recent: 181 lb 3.2 oz Lab Results - Last 24 hrs: Laboratory Results - last 24 hr 08/16/19 08/16/19 Range/Units 07:10 07:10 WBC 9.8 (5.0-10.0) 10^3/uL RBC 3.71 L (4.00-5.50) 10^6/uL Hgb 13.0 (12.0-16.0) g/dL Hct 38.4 (37.0-47.0) % MCV 103.5 H (82.0-94.0) fL MCH 35.0 H (27.0-32.0) pg MCHC 33.9 (33.0-38.0) g/dL RDW Coeff of Johnson 12.8 (11.0-15.0) % Plt Count 257 (150-400) 10^3/uL Neut % (Auto) 55.9 (35-85) % Lymph % (Auto) 27.6 (10-55) % Gordon % (Auto) 11.3 (0-16) % Eos % (Auto) 4.4 (0-5) % Baso % (Auto) 0.8 (0-3) % Neut # (Auto) 5.47 (1.80-7.00) 10^3/uL Lymph # (Auto) 2.70 (1.00-4.80) 10^3/uL Gordon # (Auto) 1.11 H (0.00-0.80) 10^3/uL Eos # (Auto) 0.43 (0.00-0.45) 10^3/uL Baso # (Auto) 0.08 10^3/uL Sodium 137 (136-145) mEq/L Potassium 4.4 (3.5-5.0) mEq/L Chloride 102 (98-106) mEq/L Carbon Dioxide 29 (21-32) mmol/L BUN 17 (7-18) mg/dL Creatinine 0.9 (0.6-1.0) mg/dL Est Cr Clr Drug Dosing 43.37 mL/min Estimated GFR (MDRD) 60 (>=60) mL/min Glucose 113 H (75-99) mg/dL Calcium 9.5 (8.4-10.1) mg/dL SJ Results - Last 24 hrs: Microbiology 08/14/19 09:51 Aerobic Blood Culture - Preliminary Blood NO GROWTH AFTER 2 DAYS Anaerobic Blood Culture - Preliminary NO GROWTH AFTER 2 DAYS 08/14/19 09:51 Urine Culture - Final Urine, Voided Escherichia Coli Med Orders - Current: Current Medications Discontinued Medications Allopurinol (Zyloprim) 300 mg PO DAILY [facility] Last Admin: 08/16/19 07:55 Dose: 300 mg Alprazolam (Xanax) 0.25 mg PO Q8H PRN PRN Reason: Anxiety Alprazolam (Xanax) 0.25 mg PO Q8H PRN PRN Reason: Anxiety Artificial Tears (Liquitears 1.4% Ophth Soln) 0 ml EYEBOTH BID [facility] Last Admin: 08/16/19 07:55 Dose: 1 drop Aspirin (Halfprin) 81 mg PO BEDTIME [facility] Last Admin: 08/15/19 19:51 Dose: 81 mg Ceftriaxone Sodium (Rocephin) 1 gm IVPUSH Q24H [facility] Last Admin: 08/16/19 14:45 Dose: 1 gm Furosemide (Lasix) 40 mg PO DAILY [facility] Last Admin: 08/16/19 07:54 Dose: 40 mg Furosemide (Lasix) 40 mg IVPUSH ONETIME ONE Stop: 08/15/19 09:26 Last Admin: 08/15/19 09:50 Dose: 40 mg Sodium Chloride (Normal Saline) 500 mls @ 500 mls/hr IV BOLUS [facility] Stop: 08/14/19 16:29 Last Admin: 08/14/19 16:24 Dose: 500 mls/hr Levothyroxine Sodium (Levothyroxine) 125 mcg PO ACBREAKFAST [facility] Last Admin: 08/16/19 07:04 Dose: 125 mcg Losartan Potassium (Cozaar) 25 mg PO DAILY [facility] Last Admin: 08/16/19 07:54 Dose: 25 mg Metoprolol Succinate (Toprol Xl) 25 mg PO DAILY [facility] Last Admin: 08/16/19 07:55 Dose: 25 mg Multivitamins/Minerals/Vitamin C (Tab-A-Rain) 1 tab PO DAILY [facility] Last Admin: 08/16/19 07:53 Dose: 1 tab Non-Formulary Medication (Lutein [Lutein]) 20 mg PO DAILY [facility] Warfarin Sodium 3 Mg (Own Med) 0 mg PO BEDTIME [facility] Last Admin: 08/15/19 19:51 Dose: 3 mg Ondansetron HCl (Zofran) 4 mg IV Q6H PRN PRN Reason: Nausea/Vomiting Simvastatin (Zocor) 20 mg PO BEDTIME [facility] Last Admin: 08/15/19 19:52 Dose: 20 mg Vitamin B Complex (Vitamin B Complex) 1 each PO DAILY [facility] Last Admin: 08/16/19 07:53 Dose: 1 each - Exam General: Reports: Alert, Oriented HEENT: Reports: Mucous Membr. Moist/[place] Neck: Reports: Supple Lungs: Reports: Clear to Auscultation, Normal Respiratory Effort Cardiovascular: Reports: Regular Rate, Regular Rhythm GI/Abdominal Exam: Normal Bowel Sounds, Soft, Non-Tender Extremities: Normal Inspection, No Pedal Edema Skin: Reports: Warm, Dry Neurological: Reports: No New Focal Deficit
== END 2019-08-16 15:16 | disposition home or self-care (01) ==
LOC: CC.FCMC 09:47 → UNDOADMOB 10:46 → CC.MS 10:46 → INTOOBSV 10:46 → CC.MS 15:17
PROVIDERS: ADMIT Nurse Practitioner; ATTEND Nurse Practitioner
DX: N39.0 Urinary tract infection, site not specified (principal); R53.1 Weakness; R06.00 Dyspnea, unspecified; I48.20 Chronic atrial fibrillation, unspecified; Z79.01 Long term (current) use of anticoagulants; Z88.0 Allergy status to penicillin; Z88.5 Allergy status to narcotic agent; Z88.2 Allergy status to sulfonamides; Z79.82 Long term (current) use of aspirin
CPT/HCPCS: 36415; 71046; 80048; 80053; 81001; 83605; 83880; 85025; 85610; 87040; 87086; 87088; 87186; 93005; 93306; 96361; 96374; 96375; 96376; 99217; 99220; 99225; A9270-GY; G0378; J0696; J1940; J7040

== ENCOUNTER 2019-12-25 12:30 | Emergency (ER) | payer MEDICARE, OTHER ==
[2019-12-25] MEDS ORDERED: Cephalexin 500 MG Cap PO ONE (12:31)
--- NOTE | 2019-12-25 13:36 | EDM.PDOC ---
ED HPI GENERAL MEDICAL PROBLEM - General Chief Complaint: General Stated Complaint: hematuria Time Seen by Provider: 12/25/19 12:30 Source of Information: Reports: Patient History Limitations: Reports: No Limitations - History of Present Illness INITIAL COMMENTS - FREE TEXT/NARRATIVE: This patient is an 84 year old pleasant female that presents to the ER. Patient reports that at 10am this morning she had urinated blood. Patient reports having history of this and sees urology. She reports her urologist before has put her on abx. Patient denies any pain or other complaints. Onset: Today Onset Date: 12/25/19 Onset Time: 10:00 Severity: Mild Improves with: Reports: None Worsens with: Reports: None Associated Symptoms: Reports: No Other Symptoms. Denies: Confusion, Chest Pain, Cough, cough w sputum, Diaphoresis, Fever/Chills, Headaches, Loss of Appetite, Malaise, Nausea/Vomiting, Seizure, Shortness of Breath, Syncope, Weakness - Related Data Allergies Allergy/AdvReac Type Severity Reaction Status Date / Time morphine Allergy Redness Verified 12/25/19 13:30 Penicillins Allergy Swelling Verified 12/25/19 13:30 Sulfa (Sulfonamide Allergy Rash Verified 12/25/19 13:30 Antibiotics) Home Meds: Home Meds Furosemide [Lasix] 40 mg PO DAILY 08/01/13 [History] Simvastatin [Zocor] 20 mg PO BEDTIME 08/01/13 [History] Levothyroxine [Synthroid] 125 mcg PO ACBREAKFAST 04/04/15 [History] Aspirin [Ecotrin EC] 81 mg PO DAILY 02/05/17 [History] Propylene Glycol/PEG 400/Pf [Systane 0.3-0.4% Eye Drop] 1 each EYEBOTH BID 02/05/17 [History] Vitamin B Complex 1 each PO DAILY 02/05/17 [History] Allopurinol [Zyloprim] 300 mg PO DAILY 06/04/17 [History] Metoprolol Succinate [Toprol XL] 25 mg PO DAILY 06/18/17 [History] ALPRAZolam [Xanax] 0.25 mg PO Q8HR PRN 04/07/18 [History] FA/Lycopene/Lut/MV,Ca,Iron,Min [Centrum] 1 each PO DAILY 04/07/18 [History] Losartan Potassium 25 mg PO DAILY 04/07/18 [History] Warfarin Sodium [Coumadin] 3 mg PO DAILY 02/01/19 [History] cephALEXin [Keflex] 500 mg PO BID 7 Days #10 cap 12/25/19 [Rx] Past Medical History HEENT History: Reports: Cataract, Impaired Vision, Macular Degeneration, Retinal Detachment Other HEENT History: has had nosebleeds in the past Cardiovascular History: Reports: Afib, Arrhythmia, Heart Valve Replacement, High Cholesterol, Hypertension, Pacemaker, SOB on Exertion Other Cardiovascular History: CHF in clinic chart records; had pacemaker checked on 02-20-16; had been attending Phase III self pay cardiac rehab; came to rehab on 01-24-16, just not feeling well generally; told [facility] staff, telemetry placed, sent to ER upon recommendation of clinic staff, having NC, sent by helicopter to [place]; had angiogram in [place], and pacemaker insertion while hospitalized in [place]; had an appointment with off for INR on 02-07-16 Gastrointestinal History: Reports: Diverticulosis Genitourinary History: Reports: UTI, Recurrent TELEMETRY TECH History: Reports: Musculoskeletal History: Reports: Arthritis, Back Pain, Chronic, Osteoarthritis Psychiatric History: Reports: Anxiety Endocrine/Metabolic History: Reports: Hypothyroidism Hematologic History: Reports: Blood Transfusion(s) - Infectious Disease History Infectious Disease History: Reports: Shingles - Past Surgical History HEENT Surgical History: Reports: Cataract Surgery, Tonsillectomy Cardiovascular Surgical History: Reports: Pacer, Valve Replacement GI Surgical History: Reports: Cholecystectomy, Colonoscopy Female Surgical History: Reports: Breast Biopsy, Hysterectomy Musculoskeletal Surgical History: Reports: Carpal Tunnel, Knee Replacement Social & Family History - Family History Family Medical History: Noncontributory - Caffeine Use Caffeine Use: Reports: Coffee - Living Situation & Occupation Living situation: Reports: , with Spouse Occupation: Retired ED ROS GENERAL - Review of Systems Review Of Systems: See Below Constitutional: Reports: No Symptoms HEENT: Reports: No Symptoms Respiratory: Reports: No Symptoms Cardiovascular: Reports: No Symptoms Endocrine: Reports: No Symptoms GI/Abdominal: Reports: No Symptoms. Denies: Abdominal Pain, Nausea, Vomiting : Reports: Hematuria. Denies: Discharge, Dysuria, Flank Pain, Frequency, Incontinence, Pain, Urgency, Urinary Retention Musculoskeletal: Reports: No Symptoms Skin: Reports: No Symptoms Neurological: Reports: No Symptoms Psychiatric: Reports: No Symptoms Hematologic/Lymphatic: Reports: No Symptoms Immunologic: Reports: No Symptoms ED EXAM, GENERAL - Physical Exam Exam: See Below Exam Limited By: No Limitations General Appearance: Alert, WD/WN, No Apparent Distress Eye Exam: Bilateral Eye: Normal Inspection, PERRL Ears: Normal External Exam, Normal Canal, Hearing Grossly Normal, Normal TMs Ear Exam: Bilateral Ear: Auricle Normal, Canal Normal, TM normal Nose: Normal Inspection, Normal Mucosa, No Blood Throat/Mouth: Normal Inspection, Normal Lips, Normal Teeth, Normal Gums, Normal Oropharynx, Normal Voice, No Airway Compromise Head: Atraumatic, Normocephalic Neck: Normal Inspection, Supple, Non-Tender, Full Range of Motion Respiratory/Chest: No Respiratory Distress, Lungs Clear, Normal Breath Sounds, No Accessory Muscle Use Cardiovascular: Normal Peripheral Pulses, Regular Rate, Rhythm, No Edema, No Gallop, No JVD, No Murmur, No Rub Peripheral Pulses: 2+: Radial (L), Radial (R), Posterior Tibial (L), Posterior Tibial (R) GI/Abdominal: Soft, Non-Tender, No Organomegaly, No Distention (Female) Exam: Deferred Rectal (Female) Exam: Deferred Back Exam: Normal Inspection, Full Range of Motion. No: CVA Tenderness (L), CVA Tenderness (R) Extremities: Normal Inspection, Normal Range of Motion, Non-Tender, No Pedal Edema, Normal Capillary Refill Neurological: Alert, Oriented Psychiatric: Normal Affect, Normal Mood Skin Exam: Warm, Dry, Intact, Normal Color, No Rash Lymphatic: No Adenopathy Course - Vital Signs Last Recorded V/S: Last Vital Signs Temp 97.9 F 12/25/19 13:27 Pulse 74 12/25/19 13:27 Resp 16 12/25/19 13:27 BP 132/88 12/25/19 13:27 Pulse Ox 95 12/25/19 13:27 - Orders/Labs/Meds Labs: Laboratory Tests 12/25/19 12/25/19 12/25/19 Range/Units 13:26 13:26 13:26 WBC 10.0 (5.0-10.0) 10^3/uL RBC 3.98 L (4.00-5.50) 10^6/uL Hgb 13.7 (12.0-16.0) g/dL Hct 40.0 (37.0-47.0) % MCV 100.5 H (82.0-94.0) fL MCH 34.4 H (27.0-32.0) pg MCHC 34.3 (33.0-38.0) g/dL RDW Coeff of Johnson 13.7 (11.0-15.0) % Plt Count 205 (150-400) 10^3/uL Neut % (Auto) 71.7 (35-85) % Lymph % (Auto) 17.0 (10-55) % [place] % (Auto) 8.4 (0-16) % Eos % (Auto) 2.5 (0-5) % Baso % (Auto) 0.4 (0-3) % Neut # (Auto) 7.15 H (1.80-7.00) 10^3/uL Lymph # (Auto) 1.69 (1.00-4.80) 10^3/uL [place] # (Auto) 0.84 H (0.00-0.80) 10^3/uL Eos # (Auto) 0.25 (0.00-0.45) 10^3/uL Baso # (Auto) 0.04 10^3/uL PT (9.7-12.3) SEC INR (0.92-1.18) Sodium 141 (136-145) mEq/L Potassium 4.2 (3.5-5.0) mEq/L Chloride 105 (98-106) mEq/L Carbon Dioxide 26 (21-32) mmol/L BUN 24 H (7-18) mg/dL Creatinine 1.0 (0.6-1.0) mg/dL Est Cr Clr Drug Dosing TNP Estimated GFR (MDRD) 53 L (>=60) mL/min Glucose 117 H (75-99) mg/dL Calcium 9.8 (8.4-10.1) mg/dL Urine Color Red (YELLOW) Urine Appearance Slightly cloudy (CLEAR) Urine pH 7.0 (4.5-8.0) Ur Specific Bailey 1.020 (1.003-1.020) Urine Protein >=300 H (NEGATIVE) mg/dL Urine Glucose (UA) Negative (NEGATIVE) mg/dL Urine Ketones Negative (NEGATIVE) mg/dL Urine Occult Blood Moderate H (NEGATIVE) Urine Nitrite Negative (NEGATIVE) Urine Bilirubin Small H (NEGATIVE) Urine Urobilinogen 0.2 (0.2-1.0) EU/dL Ur Leukocyte Esterase Small H (NEGATIVE) Urine RBC >100 H (0-5) /HPF Urine WBC 5-10 H (0-5) /HPF Urinalysis Comment 12/24/ Range/Units 13:26 WBC (5.0-10.0) 10^3/uL RBC (4.00-5.50) 10^6/uL Hgb (12.0-16.0) g/dL Hct (37.0-47.0) % MCV (82.0-94.0) fL MCH (27.0-32.0) pg MCHC (33.0-38.0) g/dL RDW Coeff of Johnson (11.0-15.0) % Plt Count (150-400) 10^3/uL Neut % (Auto) (35-85) % Lymph % (Auto) (10-55) % [place] % (Auto) (0-16) % Eos % (Auto) (0-5) % Baso % (Auto) (0-3) % Neut # (Auto) (1.80-7.00) 10^3/uL Lymph # (Auto) (1.00-4.80) 10^3/uL [place] # (Auto) (0.00-0.80) 10^3/uL Eos # (Auto) (0.00-0.45) 10^3/uL Baso # (Auto) 10^3/uL PT 29.3 H (9.7-12.3) SEC INR 2.93 H (0.92-1.18) Sodium (136-145) mEq/L Potassium (3.5-5.0) mEq/L Chloride (98-106) mEq/L Carbon Dioxide (21-32) mmol/L BUN (7-18) mg/dL Creatinine (0.6-1.0) mg/dL Est Cr Clr Drug Dosing Estimated GFR (MDRD) (>=60) mL/min Glucose (75-99) mg/dL Calcium (8.4-10.1) mg/dL Urine Color (YELLOW) Urine Appearance (CLEAR) Urine pH (4.5-8.0) Ur Specific Bailey (1.003-1.020) Urine Protein (NEGATIVE) mg/dL Urine Glucose (UA) (NEGATIVE) mg/dL Urine Ketones (NEGATIVE) mg/dL Urine Occult Blood (NEGATIVE) Urine Nitrite (NEGATIVE) Urine Bilirubin (NEGATIVE) Urine Urobilinogen (0.2-1.0) EU/dL Ur Leukocyte Esterase (NEGATIVE) Urine RBC (0-5) /HPF Urine WBC (0-5) /HPF Urinalysis Comment Meds: Medications Discontinued Medications Generic Name Dose Route Start Last Admin Trade Name Freq PRN Reason Stop Dose Admin Cephalexin 1 packet 12/25/19 13:57 12/25/19 14:03 Take Home: Cephalexin 500 Mg, 4 Cap Pack PO 12/25/19 13:58 1 packet ONETIME ONE Administration Departure - Departure Time of Disposition: 14:01 Disposition: Home, Self-Care 01 Clinical Impression: UTI, Urinary tract infectious disease Hematuria Qualifiers: Hematuria type: gross Qualified Code(s): R31.0 - Gross hematuria - Discharge Information *PRESCRIPTION DRUG MONITORING PROGRAM REVIEWED*: Not Applicable *COPY OF PRESCRIPTION DRUG MONITORING REPORT IN PATIENT RASHAUN: Not Applicable Prescriptions: cephALEXin [Keflex] 500 mg PO BID 7 Days #10 cap Instructions: Antibiotic Medicine, Adult, [id number], Urinary Tract Infection, Adult, [id number] Referrals: Gwendolyn Schmidt PA-C [Primary Care Provider] - Forms: ED Department Discharge Additional Instructions: Followup with Dr. Duque by calling office for appointment Followup with your primary care provider in 2-3 days for recheck or urine culture Keflex 500mg 1 pill twice a day for 7 days #14 no refill (Given #4 in ER) Return to the ER for worsening of condition or any emergent concerns - Assessment/Plan Plan: PLEASE SEE RN NOTE FOR PFSH.
[2019-12-25 13:37] LABS: CHLORIDE,CL 105 mEq/L (98-106); SODIUM,NA 141 mEq/L (136-145)
[2019-12-25 13:39] VITALS: BP 132/88; PULSE 74
[2019-12-25] MEDS ORDERED: Take Home: Cephalexin 500 MG Cap, 4 Cap Pack PO ONE (13:57)
== END 2019-12-25 14:10 | disposition home or self-care (01) ==
LOC: CC.ED 12:30
DX: N39.0 Urinary tract infection, site not specified (principal); R31.0 Gross hematuria; I48.91 Unspecified atrial fibrillation; E78.00 Pure hypercholesterolemia, unspecified; I10 Essential (primary) hypertension; M19.90 Unspecified osteoarthritis, unspecified site; E03.9 Hypothyroidism, unspecified; Z79.01 Long term (current) use of anticoagulants; Z79.899 Other long term (current) drug therapy; Z88.5 Allergy status to narcotic agent; Z88.0 Allergy status to penicillin; Z88.2 Allergy status to sulfonamides
CPT/HCPCS: 36415; 80048; 81001; 85025; 85610; 87086; 99283; 99284; A9270-GY

== ENCOUNTER 2022-08-21 07:13 | Emergency (ER) | payer MEDICARE, OTHER ==
[2022-08-21 08:55] VITALS: BP 120/61; PULSE 61
[2022-08-21] MEDS: Oxymetazoline 0.05% Nasal Spray 30 ML Bottle NAS ONE (09:10)
== END 2022-08-21 10:00 | disposition home or self-care (01) ==
LOC: CC.ED 07:13
DX: R04.0 Epistaxis (principal); I48.91 Unspecified atrial fibrillation; I11.0 Hypertensive heart disease with heart failure; I50.9 Heart failure, unspecified; E78.00 Pure hypercholesterolemia, unspecified; M19.90 Unspecified osteoarthritis, unspecified site; E03.9 Hypothyroidism, unspecified; Z88.5 Allergy status to narcotic agent; Z88.0 Allergy status to penicillin; Z88.2 Allergy status to sulfonamides; Z79.82 Long term (current) use of aspirin; Z79.899 Other long term (current) drug therapy; Z79.01 Long term (current) use of anticoagulants
CPT/HCPCS: 36415; 85025; 85610; 99283

== ENCOUNTER 2023-06-05 08:24 | Emergency (ER) | payer MEDICARE, OTHER ==
[2023-06-05] MEDS: Albuterol/Ipratropium 3.0-0.5 MG/3 ML Neb Soln NEB ONE (08:30)
[2023-06-05] MEDS ORDERED: Sodium Chloride 0.9% 10 ML Syringe FLUSH PRN (08:30)
[2023-06-05] MEDS: Furosemide 40 MG/4 ML VIAL IVPUSH ONE (08:39)
[2023-06-05 08:41] LABS: BASOPHILS ABSOLUTE AUTO 0.07 10^3/uL (0.00-0.50); BASOPHILS PERCENT AUTO 0.6 % (0-1); EOSINOPHILS ABSOLUTE AUTO 0.09 10^3/uL (0.00-1.50); EOSINOPHILS PERCENT AUTO 0.7 % (0-6); HEMATOCRIT 38.6 % (37.0-47.0); HEMOGLOBIN 12.7 g/dL (12.0-16.0); IMMATURE GRAN ABSOLUTE AUTO 0.02 10^3/uL (0.00-0.49); IMMATURE GRAN PERCENT AUTO 0.2 % (0.0-4.9); LYMPHOCYTES ABSOLUTE AUTO 1.35 10^3/uL (0.60-5.00); LYMPHOCYTES PERCENT AUTO 10.9 % (24-44); MEAN CORPUSCULAR HEMOGLOBIN 36.1 pg (27.0-32.0); MEAN CORPUSCULAR HGB CONC 32.9 g/dL (32.0-36.0); MEAN CORPUSCULAR VOLUME 109.7 fL (83.0-97.0); MONOCYTES ABSOLUTE AUTO 0.25 10^3/uL (0.00-1.50); NEUTROPHILS ABSOLUTE AUTO 10.57 x10^3/uL (1.80-8.00); NEUTROPHILS PERCENT AUTO 85.6 % (41-71); PLATELET COUNT,PLT 229 10^3/uL (150-400); RED BLOOD CELL COUNT 3.52 x10^6/uL (4.00-5.50); WHITE BLOOD CELL COUNT,WBC 12.4 10^3/uL (4.0-11.0)
[2023-06-05] MEDS: Albuterol 0.083% 2.5 MG/3 ML Neb Soln NEB ONE ×2 (08:44→09:34)
[2023-06-05] MEDS: cefTRIAXone 1 GM Vial IVPUSH ONE (08:44)
[2023-06-05 08:48] LABS: INR 1.56 (0.92-1.18); PROTHROMBIN TIME 15.9 SEC (9.3-11.3)
[2023-06-05 08:59] LABS: ALANINE AMINOTRANSFERASE,ALT 24 U/L (12-78); ALBUMIN 3.7 g/dL (3.4-5.0); ALKALINE PHOSPHATASE 75 U/L (46-116); ASPARTATE AMNIOTRANSFERASE,AST 30 U/L (15-37); BILIRUBIN TOTAL 1.5 mg/dL (0.0-1.0); BLOOD UREA NITROGEN,BUN 28 mg/dL (7-18); CARBON DIOXIDE,CO2 27 mmol/L (21-32); CHLORIDE,CL 106 mEq/L (98-106); CREATININE 1.1 mg/dL (0.6-1.0); GLUCOSE RANDOM 93 mg/dL (75-99); POTASSIUM,K 4.2 mEq/L (3.5-5.0); PROTEIN TOTAL,TP 7.8 g/dL (6.4-8.2); SODIUM,NA 142 mEq/L (136-145)
[2023-06-05 09:04] LABS: ESTIMATED GFR 49 mL/min (>=60)
[2023-06-05] MEDS: Iopamidol 755 Mg/ML 100 ML Bottle IVPUSH ONE (09:24)
[2023-06-05 09:31] LABS: BASE EXCESS ARTERIAL -4.8 (-2.0-3.0); BICARBONATE,ARTERIAL 19.7 mm/L (22.0-26.0); O2 DELIVERY DEVICE AEROSOL MASK; O2 SATURATION ARTERIAL 93 % (95-98); PCO2 ARTERIAL 31 mm/Hg0 (35-45); PH,ARTERIAL 7.42 (7.35-7.45); PO2 ARTERIAL 64 mm/Hg (80-100)
[2023-06-05] MEDS: Acetaminophen 325 MG Tab PO ONE (09:53)
[2023-06-05] MEDS: Sodium Chloride 0.9% 1,000 ML IV ONE (09:53)
[2023-06-05 10:10] LABS: APPEARANCE,URINE CLEAR (CLEAR); BILIRUBIN,URINE NEGATIVE (NEGATIVE); COLOR,URINE YELLOW (YELLOW); GLUCOSE,URINE NEGATIVE (NEGATIVE); KETONES,URINE NEGATIVE (NEGATIVE); LEUKOCYTE ESTERASE,URINE TRACE (NEGATIVE); NITRITE,URINE NEGATIVE (NEGATIVE); OCCULT BLOOD,URINE NEGATIVE (NEGATIVE); PH,URINE 5.5 (4.5-8.0); PROTEIN,URINE NEGATIVE (NEGATIVE); UROBILINOGEN,URINE 0.2 EU/dL (0.2-1.0)
[2023-06-05 10:21] LABS: BACTERIA,URINE MODERATE /HPF (NOT SEEN); EPITHELIAL CELLS,URINE MODERATE /HPF (NOT SEEN); RBC,URINE 0-5 /HPF (0-5); WBC CLUMPS,URINE FEW /HPF (NOT SEEN); WBC,URINE 20-30 /HPF (0-5)
[2023-06-05 12:38] VITALS: BP 93/55; PULSE 79
== END 2023-06-05 12:05 ==
LOC: CC.ED 08:24
DX: I21.4 Non-ST elevation (NSTEMI) myocardial infarction (principal); A41.9 Sepsis, unspecified organism; J18.9 Pneumonia, unspecified organism; R09.02 Hypoxemia; I10 Essential (primary) hypertension; E78.00 Pure hypercholesterolemia, unspecified; M19.90 Unspecified osteoarthritis, unspecified site; E03.9 Hypothyroidism, unspecified; Z20.822 Contact with and (suspected) exposure to COVID-19; Z90.710 Acquired absence of both cervix and uterus; Z88.0 Allergy status to penicillin; Z88.2 Allergy status to sulfonamides; Z88.5 Allergy status to narcotic agent; Z79.82 Long term (current) use of aspirin; Z79.01 Long term (current) use of anticoagulants; Z79.899 Other long term (current) drug therapy
CPT/HCPCS: 36415; 36600; 71045; 71275; 80053; 81001; 82803; 83605; 83880; 84484; 85025; 85379; 85610; 87040; 87086; 87804; 94640; 96361; 96374; 96375; 99285; A9270; J0696; J1940; J7030; Q9967; U0002; 93010; 99284; J7613-GY; J7620-GY

== ENCOUNTER 2023-07-04 08:50 | Inpatient (IN) | payer MEDICARE, OTHER ==
[2023-07-04 09:17] LABS: BASOPHILS ABSOLUTE AUTO 0.08 10^3/uL (0.00-0.50); BASOPHILS PERCENT AUTO 0.5 % (0-1); EOSINOPHILS PERCENT AUTO 0.6 % (0-6); HEMATOCRIT 37.2 % (37.0-47.0); HEMOGLOBIN 12.6 g/dL (12.0-16.0); IMMATURE GRAN ABSOLUTE AUTO 0.03 10^3/uL (0.00-0.49); IMMATURE GRAN PERCENT AUTO 0.2 % (0.0-4.9); LYMPHOCYTES ABSOLUTE AUTO 0.46 10^3/uL (0.60-5.00); LYMPHOCYTES PERCENT AUTO 2.7 % (24-44); MEAN CORPUSCULAR HEMOGLOBIN 36.5 pg (27.0-32.0); MEAN CORPUSCULAR HGB CONC 33.9 g/dL (32.0-36.0); MEAN CORPUSCULAR VOLUME 107.8 fL (83.0-97.0); MONOCYTES ABSOLUTE AUTO 0.63 10^3/uL (0.00-1.50); MONOCYTES PERCENT AUTO 3.7 % (0-10); NEUTROPHILS ABSOLUTE AUTO 15.55 x10^3/uL (1.80-8.00); NEUTROPHILS PERCENT AUTO 92.3 % (41-71); PLATELET COUNT,PLT 222 10^3/uL (150-400); RED BLOOD CELL COUNT 3.45 x10^6/uL (4.00-5.50); WHITE BLOOD CELL COUNT,WBC 16.9 10^3/uL (4.0-11.0)
[2023-07-04 09:33] LABS: ALANINE AMINOTRANSFERASE,ALT 14 U/L (12-78); ALBUMIN 3.6 g/dL (3.4-5.0); ALKALINE PHOSPHATASE 66 U/L (46-116); ASPARTATE AMNIOTRANSFERASE,AST 30 U/L (15-37); BILIRUBIN TOTAL 1.3 mg/dL (0.0-1.0); BLOOD UREA NITROGEN,BUN 28 mg/dL (7-18); CARBON DIOXIDE,CO2 26 mmol/L (21-32); CHLORIDE,CL 102 mEq/L (98-106); GLUCOSE RANDOM 103 mg/dL (75-99); MAGNESIUM 1.6 mg/dL (1.8-2.4); PROTEIN TOTAL,TP 7.8 g/dL (6.4-8.2); SODIUM,NA 139 mEq/L (136-145)
[2023-07-04 09:37] LABS: ESTIMATED GFR 55 mL/min (>=60)
[2023-07-04 09:38] LABS: INR 2.35 (0.92-1.18); PROTHROMBIN TIME 23.7 SEC (9.3-11.3); PTT,PARTIAL THROMBOPLSTIN TIME 27.1 SEC (20.0-30.0)
[2023-07-04 09:53] LABS: CORONAVIRUS COVID-19 NAA NEGATIVE (NEGATIVE); INFLUENZA A NAA NEGATIVE (NEGATIVE); INFLUENZA B NAA NEGATIVE (NEGATIVE); RESPIRATORY SYNCYTIAL VIR NAA NEGATIVE (NEGATIVE)
[2023-07-04] MEDS ORDERED: Polyethylene Glycol 3350 Powder 17 GM Packet PO PRN (10:23)
[2023-07-04] MEDS ORDERED: Albuterol/Ipratropium 3.0-0.5 MG/3 ML Neb Soln NEB PRN (10:23)
[2023-07-04] MEDS ORDERED: Ondansetron 4 MG Tab.DIS PO PRN (10:23)
[2023-07-04] MEDS ORDERED: Acetaminophen 325 MG Tab PO PRN (10:23)
[2023-07-04] MEDS ORDERED: Docusate Sodium 100 MG Cap PO PRN (10:23)
[2023-07-04] MEDS: Furosemide 40 MG/4 ML VIAL IVPUSH SCH (11:06)
[2023-07-04] MEDS: Azithromycin 500 MG in Sodium Chloride 0.9% 250 ML IV SCH (11:06)
[2023-07-04] MEDS: cefTRIAXone 1 GM Vial IVPUSH SCH (11:06)
[2023-07-05 07:55] LABS: APPEARANCE,URINE CLEAR (CLEAR); BILIRUBIN,URINE NEGATIVE (NEGATIVE); COLOR,URINE DARK YELLOW (YELLOW); GLUCOSE,URINE NEGATIVE (NEGATIVE); KETONES,URINE NEGATIVE (NEGATIVE); LEUKOCYTE ESTERASE,URINE NEGATIVE (NEGATIVE); NITRITE,URINE NEGATIVE (NEGATIVE); OCCULT BLOOD,URINE NEGATIVE (NEGATIVE); PROTEIN,URINE NEGATIVE (NEGATIVE); UROBILINOGEN,URINE 0.2 EU/dL (0.2-1.0)
[2023-07-05 08:01] LABS: BASOPHILS ABSOLUTE AUTO 0.08 10^3/uL (0.00-0.50); BASOPHILS PERCENT AUTO 0.9 % (0-1); EOSINOPHILS ABSOLUTE AUTO 0.43 10^3/uL (0.00-1.50); EOSINOPHILS PERCENT AUTO 4.7 % (0-6); HEMATOCRIT 31.5 % (37.0-47.0); HEMOGLOBIN 10.6 g/dL (12.0-16.0); IMMATURE GRAN ABSOLUTE AUTO 0.02 10^3/uL (0.00-0.49); IMMATURE GRAN PERCENT AUTO 0.2 % (0.0-4.9); LYMPHOCYTES ABSOLUTE AUTO 1.18 10^3/uL (0.60-5.00); LYMPHOCYTES PERCENT AUTO 12.9 % (24-44); MEAN CORPUSCULAR HEMOGLOBIN 36.8 pg (27.0-32.0); MEAN CORPUSCULAR HGB CONC 33.7 g/dL (32.0-36.0); MEAN CORPUSCULAR VOLUME 109.4 fL (83.0-97.0); MONOCYTES ABSOLUTE AUTO 0.72 10^3/uL (0.00-1.50); MONOCYTES PERCENT AUTO 7.9 % (0-10); NEUTROPHILS ABSOLUTE AUTO 6.69 x10^3/uL (1.80-8.00); NEUTROPHILS PERCENT AUTO 73.4 % (41-71); PLATELET COUNT,PLT 212 10^3/uL (150-400); RED BLOOD CELL COUNT 2.88 x10^6/uL (4.00-5.50); WHITE BLOOD CELL COUNT,WBC 9.1 10^3/uL (4.0-11.0)
[2023-07-05 08:38] LABS: CALCIUM 11.9 mg/dL (8.4-10.1); EST CRCL DRUG DOSING (CG) 34.87 mL/min; MAGNESIUM 1.8 mg/dL (1.8-2.4); POTASSIUM,K 4.3 mEq/L (3.5-5.0)
[2023-07-05] MEDS ORDERED: ALPRAZolam 0.25 MG Tab PO PRN (09:59)
[2023-07-05] MEDS: Aspirin 81 MG Tab.EC PO SCH (10:56)
[2023-07-05] MEDS: Cholecalciferol (Vitamin D3) 5,000 UNIT Tab PO SCH (10:56)
[2023-07-05] MEDS: Allopurinol 300 MG Tab PO SCH (10:56)
[2023-07-05] MEDS: Ascorbic Acid 500 MG Tab PO SCH (10:56)
[2023-07-05] MEDS: Vitamin B Complex Cap PO SCH (10:56)
[2023-07-05] MEDS: Levothyroxine 125 MCG Tab PO SCH (10:57)
[2023-07-05] MEDS: Metoprolol Succinate 25 MG Tab.ER PO SCH (10:58)
[2023-07-05] MEDS: Hypromellose 0.3% Ophth Soln 15 ML Bottle EYEBOTH SCH (10:59)
[2023-07-05] MEDS: Beta-Carotene (Vitamin A) w/Vitamin C & E plus Minerals Tab PO SCH (10:59)
[2023-07-05] MEDS: Simvastatin 20 MG Tab PO SCH (19:28)
[2023-07-06 07:47] LABS: BASOPHILS ABSOLUTE AUTO 0.09 10^3/uL (0.00-0.50); BASOPHILS PERCENT AUTO 1.3 % (0-1); EOSINOPHILS PERCENT AUTO 7.2 % (0-6); IMMATURE GRAN ABSOLUTE AUTO 0.03 10^3/uL (0.00-0.49); IMMATURE GRAN PERCENT AUTO 0.4 % (0.0-4.9); LYMPHOCYTES ABSOLUTE AUTO 1.27 10^3/uL (0.60-5.00); LYMPHOCYTES PERCENT AUTO 18.3 % (24-44); MEAN CORPUSCULAR HEMOGLOBIN 36.1 pg (27.0-32.0); MEAN CORPUSCULAR HGB CONC 33.3 g/dL (32.0-36.0); MEAN CORPUSCULAR VOLUME 108.2 fL (83.0-97.0); MONOCYTES ABSOLUTE AUTO 0.84 10^3/uL (0.00-1.50); MONOCYTES PERCENT AUTO 12.1 % (0-10); NEUTROPHILS ABSOLUTE AUTO 4.22 x10^3/uL (1.80-8.00); NEUTROPHILS PERCENT AUTO 60.7 % (41-71); PLATELET COUNT,PLT 205 10^3/uL (150-400); RED BLOOD CELL COUNT 3.05 x10^6/uL (4.00-5.50)
[2023-07-06] MEDS: Multivitamins with Iron/Calcium/Folic Acid/Minerals Tab PO SCH (07:49)
[2023-07-06 08:03] LABS: ALBUMIN 2.9 g/dL (3.4-5.0); BILIRUBIN TOTAL 0.9 mg/dL (0.0-1.0); CALCIUM 11.6 mg/dL (8.4-10.1); CREATININE 0.9 mg/dL (0.6-1.0); EST CRCL DRUG DOSING (CG) 38.75 mL/min; MAGNESIUM 1.7 mg/dL (1.8-2.4); POTASSIUM,K 4.2 mEq/L (3.5-5.0); PROTEIN TOTAL,TP 6.7 g/dL (6.4-8.2)
[2023-07-07 07:25] LABS: BASOPHILS ABSOLUTE AUTO 0.08 10^3/uL (0.00-0.50); BASOPHILS PERCENT AUTO 1.2 % (0-1); EOSINOPHILS ABSOLUTE AUTO 0.57 10^3/uL (0.00-1.50); EOSINOPHILS PERCENT AUTO 8.4 % (0-6); HEMATOCRIT 33.1 % (37.0-47.0); HEMOGLOBIN 11.2 g/dL (12.0-16.0); IMMATURE GRAN ABSOLUTE AUTO 0.04 10^3/uL (0.00-0.49); IMMATURE GRAN PERCENT AUTO 0.6 % (0.0-4.9); LYMPHOCYTES ABSOLUTE AUTO 1.57 10^3/uL (0.60-5.00); LYMPHOCYTES PERCENT AUTO 23.3 % (24-44); MEAN CORPUSCULAR HEMOGLOBIN 36.5 pg (27.0-32.0); MEAN CORPUSCULAR HGB CONC 33.8 g/dL (32.0-36.0); MEAN CORPUSCULAR VOLUME 107.8 fL (83.0-97.0); MONOCYTES ABSOLUTE AUTO 0.82 10^3/uL (0.00-1.50); MONOCYTES PERCENT AUTO 12.1 % (0-10); NEUTROPHILS ABSOLUTE AUTO 3.67 x10^3/uL (1.80-8.00); NEUTROPHILS PERCENT AUTO 54.4 % (41-71); PLATELET COUNT,PLT 199 10^3/uL (150-400); RED BLOOD CELL COUNT 3.07 x10^6/uL (4.00-5.50); WHITE BLOOD CELL COUNT,WBC 6.8 10^3/uL (4.0-11.0)
[2023-07-07] MEDS: Furosemide 40 MG Tab PO SCH (07:26)
[2023-07-07 07:27] VITALS: BP 129/72; PULSE 65
[2023-07-07 08:27] LABS: INR 1.85 (0.92-1.18); PROTHROMBIN TIME 18.9 SEC (9.3-11.3)
[2023-07-07 08:39] LABS: CALCIUM 11.5 mg/dL (8.4-10.1); CREATININE 0.8 mg/dL (0.6-1.0); EST CRCL DRUG DOSING (CG) 43.59 mL/min; MAGNESIUM 1.7 mg/dL (1.8-2.4); POTASSIUM,K 4.2 mEq/L (3.5-5.0)
== END 2023-07-07 10:56 | disposition swing bed (61) | DRG 195 ==
LOC: CC.ED 08:50 → UNDOADMIN 09:56 → CC.MS 09:56
PROVIDERS: ADMIT Nurse Practitioner; ATTEND Nurse Practitioner
DX: J18.9 Pneumonia, unspecified organism (principal); I48.91 Unspecified atrial fibrillation; I50.9 Heart failure, unspecified; I11.0 Hypertensive heart disease with heart failure; M19.90 Unspecified osteoarthritis, unspecified site; E03.9 Hypothyroidism, unspecified; E78.00 Pure hypercholesterolemia, unspecified; D72.829 Elevated white blood cell count, unspecified; R09.02 Hypoxemia; E83.52 Hypercalcemia; Z95.0 Presence of cardiac pacemaker; Z88.5 Allergy status to narcotic agent; Z88.0 Allergy status to penicillin; Z88.2 Allergy status to sulfonamides; Z95.2 Presence of prosthetic heart valve; Z79.01 Long term (current) use of anticoagulants; Z79.82 Long term (current) use of aspirin; Z79.899 Other long term (current) drug therapy; Z79.890 Hormone replacement therapy; Z90.710 Acquired absence of both cervix and uterus; Z96.659 Presence of unspecified artificial knee joint; Z90.49 Acquired absence of other specified parts of digestive tract; Z98.49 Cataract extraction status, unspecified eye; Z11.52 Encounter for screening for COVID-19; Z99.81 Dependence on supplemental oxygen
CPT/HCPCS: 0241U; 36415; 70450; 71046; 80048; 80053; 81003; 83605; 83735; 83880; 84484; 85025; 85610; 85730; 87040; 87070; 87205; 93005; 93010; 97110-GP; 97162-GP; 99223; 99232; 99233; 99238; 99285; A9270-GY; J0456; J0696; J1940; J7050

== ENCOUNTER 2023-07-07 09:43 | Inpatient (IN) | payer MEDICARE, OTHER ==
[2023-07-07] MEDS ORDERED: Docusate Sodium 100 MG Cap PO PRN (12:06)
[2023-07-07] MEDS ORDERED: Albuterol/Ipratropium 3.0-0.5 MG/3 ML Neb Soln NEB PRN (12:06)
[2023-07-07] MEDS ORDERED: Ondansetron 4 MG Tab.DIS PO PRN (12:06)
[2023-07-07] MEDS ORDERED: ALPRAZolam 0.25 MG Tab PO PRN (12:06)
[2023-07-07] MEDS ORDERED: Polyethylene Glycol 3350 Powder 17 GM Packet PO PRN (12:06)
[2023-07-07] MEDS: Simvastatin 20 MG Tab PO SCH (19:06)
[2023-07-07] MEDS: Beta-Carotene (Vitamin A) w/Vitamin C & E plus Minerals Tab PO SCH (19:06)
[2023-07-07] MEDS: Hypromellose 0.3% Ophth Soln 15 ML Bottle EYEBOTH SCH (19:16)
[2023-07-08] MEDS: cefTRIAXone 1 GM Vial IVPUSH SCH (13:36)
[2023-07-08] MEDS: Allopurinol 300 MG Tab PO SCH (13:36)
[2023-07-08] MEDS: Aspirin 81 MG Tab.EC PO SCH (13:39)
[2023-07-08] MEDS: Levothyroxine 125 MCG Tab PO SCH (13:39)
[2023-07-08] MEDS: Azithromycin 250 MG Tab PO SCH (13:41)
[2023-07-08] MEDS: Cholecalciferol (Vitamin D3) 5,000 UNIT Tab PO SCH (13:41)
[2023-07-08] MEDS: Ascorbic Acid 500 MG Tab PO SCH (13:41)
[2023-07-08] MEDS: Furosemide 40 MG Tab PO SCH (13:42)
[2023-07-08] MEDS: Vitamin B Complex Cap PO SCH (13:45)
[2023-07-08] MEDS: Metoprolol Succinate 25 MG Tab.ER PO SCH (13:45)
[2023-07-09 08:16] LABS: INR 1.79 (0.92-1.18); PROTHROMBIN TIME 18.3 SEC (9.3-11.3)
[2023-07-09] MEDS: Acetaminophen 325 MG Tab PO PRN (08:51)
[2023-07-10 08:20] LABS: INR 1.94 (0.92-1.18); PROTHROMBIN TIME 19.7 SEC (9.3-11.3)
[2023-07-11 08:09] VITALS: BP 130/73; PULSE 71
== END 2023-07-11 09:56 | DRG 948 ==
LOC: UNDOADMIN 09:43 → CC.MS 09:43
PROVIDERS: ADMIT Nurse Practitioner Family; ATTEND Nurse Practitioner Family
DX: R53.1 Weakness (principal); I48.91 Unspecified atrial fibrillation; I50.9 Heart failure, unspecified; Z79.82 Long term (current) use of aspirin; Z79.01 Long term (current) use of anticoagulants; Z79.890 Hormone replacement therapy; Z79.899 Other long term (current) drug therapy
CPT/HCPCS: 36415; 85610; 97110-GP; 97530-GP; A9270-GY; J0696

== ENCOUNTER 2023-07-11 18:24 | Emergency (ER) | payer MEDICARE, OTHER | END 2023-07-11 20:50 | disposition swing bed (61) | LOC: CC.ED 18:24 | DX: R53.1 Weakness (principal); I10 Essential (primary) hypertension; E78.00 Pure hypercholesterolemia, unspecified; M19.90 Unspecified osteoarthritis, unspecified site; E03.9 Hypothyroidism, unspecified; Z88.2 Allergy status to sulfonamides; Z88.5 Allergy status to narcotic agent; Z88.0 Allergy status to penicillin; Z79.82 Long term (current) use of aspirin; Z79.01 Long term (current) use of anticoagulants; Z79.899 Other long term (current) drug therapy; Z90.49 Acquired absence of other specified parts of digestive tract; Z90.710 Acquired absence of both cervix and uterus | CPT/HCPCS: 71045; 99285 ==

== ENCOUNTER 2023-07-16 12:22 | Observation (INO) | payer MEDICARE, OTHER ==
[2023-07-16 12:46] LABS: BASOPHILS ABSOLUTE AUTO 0.08 10^3/uL (0.00-0.50); BASOPHILS PERCENT AUTO 0.4 % (0-1); EOSINOPHILS ABSOLUTE AUTO 0.03 10^3/uL (0.00-1.50); EOSINOPHILS PERCENT AUTO 0.1 % (0-6); HEMATOCRIT 30.6 % (37.0-47.0); HEMOGLOBIN 10.2 g/dL (12.0-16.0); IMMATURE GRAN ABSOLUTE AUTO 0.08 10^3/uL (0.00-0.49); IMMATURE GRAN PERCENT AUTO 0.4 % (0.0-4.9); LYMPHOCYTES ABSOLUTE AUTO 0.68 10^3/uL (0.60-5.00); LYMPHOCYTES PERCENT AUTO 3.1 % (24-44); MEAN CORPUSCULAR HEMOGLOBIN 35.9 pg (27.0-32.0); MEAN CORPUSCULAR HGB CONC 33.3 g/dL (32.0-36.0); MEAN CORPUSCULAR VOLUME 107.7 fL (83.0-97.0); MONOCYTES ABSOLUTE AUTO 0.48 10^3/uL (0.00-1.50); MONOCYTES PERCENT AUTO 2.2 % (0-10); NEUTROPHILS ABSOLUTE AUTO 20.82 x10^3/uL (1.80-8.00); NEUTROPHILS PERCENT AUTO 93.8 % (41-71); PLATELET COUNT,PLT 193 10^3/uL (150-400); RED BLOOD CELL COUNT 2.84 x10^6/uL (4.00-5.50)
[2023-07-16 12:52] LABS: WHITE BLOOD CELL COUNT,WBC 22.2 10^3/uL (4.0-11.0)
[2023-07-16 13:18] LABS: BLOOD UREA NITROGEN,BUN 31 mg/dL (7-18); C-REACTIVE PROTEIN 6.47 mg/dL (<=0.50); CALCIUM 10.9 mg/dL (8.4-10.1); CARBON DIOXIDE,CO2 25 mmol/L (21-32); CHLORIDE,CL 101 mEq/L (98-106); CREATININE 1.1 mg/dL (0.6-1.0); GLUCOSE RANDOM 104 mg/dL (75-99); POTASSIUM,K 4.3 mEq/L (3.5-5.0); PRO B-TYPE NATRIUR PEPT,BNPPRO 12379 pg/mL (0-1000); SODIUM,NA 136 mEq/L (136-145)
[2023-07-16 13:19] LABS: INR 2.05 (0.92-1.18); PROTHROMBIN TIME 20.8 SEC (9.3-11.3)
[2023-07-16 13:20] LABS: ESTIMATED GFR 49 mL/min (>=60)
[2023-07-16] MEDS ORDERED: Polyethylene Glycol 3350 Powder 17 GM Packet PO PRN (14:25)
[2023-07-16] MEDS ORDERED: Docusate Sodium 100 MG Cap PO PRN (14:25)
[2023-07-16] MEDS ORDERED: Ondansetron 4 MG/2 ML SDV IV PRN (14:25)
[2023-07-16] MEDS ORDERED: Acetaminophen 325 MG Tab PO PRN (14:25)
[2023-07-16] MEDS ORDERED: hydrOXYzine HCl 25 MG Tab PO PRN (14:25)
[2023-07-16] MEDS ORDERED: Ondansetron 4 MG Tab.DIS PO PRN (14:25)
[2023-07-16] MEDS ORDERED: Sodium Chloride 0.9% 10 ML Syringe FLUSH PRN (14:25)
[2023-07-16] MEDS: Furosemide 40 MG/4 ML VIAL IVPUSH ONE (15:00)
[2023-07-16] MEDS: Levofloxacin/Dextrose 5%-Water 750 MG in Premix Bag 1 BAG IV SCH (15:01)
[2023-07-16] MEDS: Albuterol/Ipratropium 3.0-0.5 MG/3 ML Neb Soln NEB SCH (15:02)
[2023-07-16] MEDS: Lactobacillus Rhamnosus GG (Probiotic) Cap PO SCH (18:46)
[2023-07-16] MEDS: Hypromellose 0.3% Ophth Soln 15 ML Bottle EYEBOTH SCH (19:49)
[2023-07-16] MEDS: Simvastatin 20 MG Tab PO SCH (19:50)
[2023-07-16] MEDS: Sertraline 25 MG Tab PO SCH (19:50)
[2023-07-17] MEDS: Levothyroxine 125 MCG Tab PO SCH (06:12)
[2023-07-17 07:30] LABS: BASOPHILS ABSOLUTE AUTO 0.07 10^3/uL (0.00-0.50); BASOPHILS PERCENT AUTO 0.6 % (0-1); EOSINOPHILS ABSOLUTE AUTO 0.54 10^3/uL (0.00-1.50); EOSINOPHILS PERCENT AUTO 4.7 % (0-6); HEMATOCRIT 27.7 % (37.0-47.0); HEMOGLOBIN 9.3 g/dL (12.0-16.0); IMMATURE GRAN ABSOLUTE AUTO 0.09 10^3/uL (0.00-0.49); IMMATURE GRAN PERCENT AUTO 0.8 % (0.0-4.9); LYMPHOCYTES ABSOLUTE AUTO 0.94 10^3/uL (0.60-5.00); LYMPHOCYTES PERCENT AUTO 8.1 % (24-44); MEAN CORPUSCULAR HEMOGLOBIN 36.5 pg (27.0-32.0); MEAN CORPUSCULAR HGB CONC 33.6 g/dL (32.0-36.0); MEAN CORPUSCULAR VOLUME 108.6 fL (83.0-97.0); MONOCYTES PERCENT AUTO 6.1 % (0-10); NEUTROPHILS ABSOLUTE AUTO 9.23 x10^3/uL (1.80-8.00); NEUTROPHILS PERCENT AUTO 79.7 % (41-71); PLATELET COUNT,PLT 192 10^3/uL (150-400); RED BLOOD CELL COUNT 2.55 x10^6/uL (4.00-5.50); WHITE BLOOD CELL COUNT,WBC 11.6 10^3/uL (4.0-11.0)
[2023-07-17 07:49] LABS: INR 2.17 (0.92-1.18); PROTHROMBIN TIME 21.9 SEC (9.3-11.3)
[2023-07-17 08:07] LABS: ALBUMIN 2.7 g/dL (3.4-5.0); BILIRUBIN TOTAL 1.5 mg/dL (0.0-1.0); C-REACTIVE PROTEIN 9.02 mg/dL (<=0.50); CALCIUM 10.3 mg/dL (8.4-10.1); CREATININE 1.1 mg/dL (0.6-1.0); EST CRCL DRUG DOSING (CG) 33.03 mL/min; PROTEIN TOTAL,TP 6.4 g/dL (6.4-8.2)
[2023-07-17] MEDS: Cholecalciferol (Vitamin D3) 5,000 UNIT Tab PO SCH (08:08)
[2023-07-17] MEDS: Aspirin 81 MG Tab.EC PO SCH (08:08)
[2023-07-17] MEDS: Metoprolol Succinate 25 MG Tab.ER PO SCH (08:08)
[2023-07-17] MEDS: Furosemide 40 MG/4 ML VIAL IVPUSH SCH (08:08)
[2023-07-17] MEDS: Allopurinol 100 MG Tab PO SCH (08:09)
[2023-07-18 05:56] VITALS: PULSE 62
[2023-07-18 07:30] LABS: BASOPHILS ABSOLUTE AUTO 0.05 10^3/uL (0.00-0.50); BASOPHILS PERCENT AUTO 0.7 % (0-1); EOSINOPHILS ABSOLUTE AUTO 0.55 10^3/uL (0.00-1.50); EOSINOPHILS PERCENT AUTO 8.1 % (0-6); HEMATOCRIT 28.6 % (37.0-47.0); HEMOGLOBIN 9.4 g/dL (12.0-16.0); IMMATURE GRAN ABSOLUTE AUTO 0.07 10^3/uL (0.00-0.49); LYMPHOCYTES ABSOLUTE AUTO 0.98 10^3/uL (0.60-5.00); LYMPHOCYTES PERCENT AUTO 14.5 % (24-44); MEAN CORPUSCULAR HEMOGLOBIN 36.2 pg (27.0-32.0); MEAN CORPUSCULAR HGB CONC 32.9 g/dL (32.0-36.0); MONOCYTES ABSOLUTE AUTO 0.65 10^3/uL (0.00-1.50); MONOCYTES PERCENT AUTO 9.6 % (0-10); NEUTROPHILS ABSOLUTE AUTO 4.46 x10^3/uL (1.80-8.00); NEUTROPHILS PERCENT AUTO 66.1 % (41-71); PLATELET COUNT,PLT 204 10^3/uL (150-400); WHITE BLOOD CELL COUNT,WBC 6.8 10^3/uL (4.0-11.0)
[2023-07-18 07:45] VITALS: BP 115/65
[2023-07-18 07:53] LABS: ALBUMIN 2.8 g/dL (3.4-5.0); BILIRUBIN TOTAL 1.3 mg/dL (0.0-1.0); C-REACTIVE PROTEIN 6.28 mg/dL (<=0.50); CALCIUM 10.5 mg/dL (8.4-10.1); EST CRCL DRUG DOSING (CG) 36.34 mL/min; POTASSIUM,K 4.2 mEq/L (3.5-5.0); PROTEIN TOTAL,TP 6.5 g/dL (6.4-8.2)
[2023-07-18] MEDS ORDERED: Levofloxacin 500 MG Tab PO SCH (12:00)
[2023-07-19] MEDS ORDERED: Sertraline 25 MG Tab PO SCH (20:00)
== END 2023-07-18 09:25 ==
LOC: CC.MS 12:22 → CC.FCMC 12:22 → UNDOADMOB 14:24 → CC.MS 14:24
PROVIDERS: ADMIT Nurse Practitioner Family; ATTEND Nurse Practitioner Family
DX: I11.0 Hypertensive heart disease with heart failure (principal); I50.9 Heart failure, unspecified; F41.8 Other specified anxiety disorders; R53.1 Weakness; R09.02 Hypoxemia; J18.9 Pneumonia, unspecified organism; E78.00 Pure hypercholesterolemia, unspecified; I48.91 Unspecified atrial fibrillation; E03.9 Hypothyroidism, unspecified; Z20.822 Contact with and (suspected) exposure to COVID-19; Z79.890 Hormone replacement therapy; Z79.01 Long term (current) use of anticoagulants; Z79.82 Long term (current) use of aspirin; Z79.899 Other long term (current) drug therapy; Z88.0 Allergy status to penicillin; Z88.2 Allergy status to sulfonamides; Z88.5 Allergy status to narcotic agent
CPT/HCPCS: 36415; 71046; 80048; 80053; 83880; 85025; 85610; 86140; 93005; 94640; 96365; 96366; 96375; 96376; A9270-GY; G0378; J1940; J1956; J7620-GY; U0002

== ENCOUNTER 2023-08-14 08:45 | Inpatient (IN) | payer MEDICARE, OTHER ==
[2023-08-14] MEDS: Furosemide 40 MG/4 ML VIAL IVPUSH ONE ×2 (09:19→12:09)
[2023-08-14] MEDS: Albuterol/Ipratropium 3.0-0.5 MG/3 ML Neb Soln NEB ONE (09:19)
[2023-08-14 09:40] LABS: BASOPHILS ABSOLUTE AUTO 0.05 10^3/uL (0.00-0.50); BASOPHILS PERCENT AUTO 0.4 % (0-1); EOSINOPHILS ABSOLUTE AUTO 0.02 10^3/uL (0.00-1.50); EOSINOPHILS PERCENT AUTO 0.2 % (0-6); HEMATOCRIT 33.9 % (37.0-47.0); HEMOGLOBIN 11.1 g/dL (12.0-16.0); IMMATURE GRAN ABSOLUTE AUTO 0.03 10^3/uL (0.00-0.49); IMMATURE GRAN PERCENT AUTO 0.3 % (0.0-4.9); LYMPHOCYTES PERCENT AUTO 6.8 % (24-44); MEAN CORPUSCULAR HEMOGLOBIN 35.2 pg (27.0-32.0); MEAN CORPUSCULAR HGB CONC 32.7 g/dL (32.0-36.0); MEAN CORPUSCULAR VOLUME 107.6 fL (83.0-97.0); MONOCYTES ABSOLUTE AUTO 0.31 10^3/uL (0.00-1.50); MONOCYTES PERCENT AUTO 2.6 % (0-10); NEUTROPHILS ABSOLUTE AUTO 10.52 x10^3/uL (1.80-8.00); NEUTROPHILS PERCENT AUTO 89.7 % (41-71); PLATELET COUNT,PLT 148 10^3/uL (150-400); RED BLOOD CELL COUNT 3.15 x10^6/uL (4.00-5.50); WHITE BLOOD CELL COUNT,WBC 11.7 10^3/uL (4.0-11.0)
[2023-08-14 10:00] LABS: D-DIMER QUANTITATIVE 1.15 (0.00-0.50); INR 2.73 (0.92-1.18); PROTHROMBIN TIME 27.3 SEC (9.3-11.3)
[2023-08-14] MEDS ORDERED: Sodium Chloride 0.9% 500 ML IV SCH (10:00)
[2023-08-14 10:17] LABS: ALBUMIN 3.2 g/dL (3.4-5.0); BILIRUBIN TOTAL 1.5 mg/dL (0.0-1.0); CALCIUM 8.7 mg/dL (8.4-10.1); CREATININE 1.5 mg/dL (0.6-1.0); EST CRCL DRUG DOSING (CG) 24.23 mL/min; MAGNESIUM 1.6 mg/dL (1.8-2.4); POTASSIUM,K 4.3 mEq/L (3.5-5.0); PROTEIN TOTAL,TP 7.1 g/dL (6.4-8.2)
[2023-08-14] MEDS: Cefepime 2 GM in Sodium Chloride 0.9% 100 ML IV ONE (11:00)
[2023-08-14] MEDS: Acetaminophen 650 MG Supp RECTAL ONE (12:17)
[2023-08-14] MEDS ORDERED: Cefepime 2 GM in Sodium Chloride 0.9% 100 ML IV SCH (12:56)
[2023-08-14] MEDS ORDERED: Acetaminophen 325 MG Tab PO PRN (12:56)
[2023-08-14] MEDS ORDERED: Docusate Sodium 100 MG Cap PO PRN (12:56)
[2023-08-14] MEDS ORDERED: Albuterol/Ipratropium 3.0-0.5 MG/3 ML Neb Soln NEB PRN (12:56)
[2023-08-14] MEDS ORDERED: Polyethylene Glycol 3350 Powder 17 GM Packet PO PRN (12:56)
[2023-08-14 13:53] VITALS: BP 72/42; PULSE 60
[2023-08-14 15:16] LABS: APPEARANCE,URINE SLIGHTLY CLOUDY (CLEAR); BILIRUBIN,URINE NEGATIVE (NEGATIVE); COLOR,URINE DARK YELLOW (YELLOW); GLUCOSE,URINE NEGATIVE (NEGATIVE); KETONES,URINE TRACE mg/dL (NEGATIVE); LEUKOCYTE ESTERASE,URINE NEGATIVE (NEGATIVE); NITRITE,URINE NEGATIVE (NEGATIVE); OCCULT BLOOD,URINE NEGATIVE (NEGATIVE); PROTEIN,URINE 100 mg/dL (NEGATIVE); UROBILINOGEN,URINE 0.2 EU/dL (0.2-1.0)
[2023-08-14 15:29] LABS: EPITHELIAL CELLS,URINE MODERATE /HPF (NOT SEEN); RBC,URINE 0-5 /HPF (0-5); WBC,URINE 0-5 /HPF (0-5)
[2023-08-14 15:30] LABS: AMORPHOUS SEDIMENT,URINE FEW /HPF (NOT SEEN); BACTERIA,URINE FEW /HPF (NOT SEEN); GRANULAR CASTS,URINE OCCASIONAL /LPF (NOT SEEN)
[2023-08-14] MEDS: Sodium Chloride 0.9% 500 ML ONE ×2 (16:01→16:02)
[2023-08-14] MEDS: Albuterol/Ipratropium 3.0-0.5 MG/3 ML Neb Soln NEB SCH (16:02)
[2023-08-14] MEDS: LORazepam 2 MG/ML SDV IVPUSH ONE (16:03)
[2023-08-14] MEDS: Furosemide 40 MG/4 ML VIAL IVPUSH SCH (16:07)
[2023-08-14] MEDS: Norepinephrine Bit/D5W Premix 250 ML IV SCH (16:11)
[2023-08-15] MEDS ORDERED: Cefepime 1 GM in Sodium Chloride 0.9% 100 ML IV SCH (08:00)
== END 2023-08-14 17:16 | DRG 871 ==
LOC: CC.ED 08:45 → CC.MS 10:36 → UNDOADMIN 10:36 → CC.MS 12:08
PROVIDERS: ADMIT Nurse Practitioner; ATTEND Nurse Practitioner
PROC: 3E03329 Introduction of Other Anti-infective into Peripheral Vein, Percutaneous Approach (ICD-10-PCS; principal; 2023-08-14)
PROC: 3E033XZ Introduction of Vasopressor into Peripheral Vein, Percutaneous Approach (ICD-10-PCS; 2023-08-14)
DX: A41.9 Sepsis, unspecified organism (principal); I21.A1 Myocardial infarction type 2; I50.33 Acute on chronic diastolic (congestive) heart failure; J18.9 Pneumonia, unspecified organism; J96.01 Acute respiratory failure with hypoxia; Z51.5 Encounter for palliative care; Z66 Do not resuscitate; M19.90 Unspecified osteoarthritis, unspecified site; Z96.659 Presence of unspecified artificial knee joint; F41.9 Anxiety disorder, unspecified; E03.9 Hypothyroidism, unspecified; I95.9 Hypotension, unspecified; F32.A Depression, unspecified; M54.9 Dorsalgia, unspecified; G89.29 Other chronic pain; Z88.0 Allergy status to penicillin; Z88.2 Allergy status to sulfonamides; Z88.5 Allergy status to narcotic agent; Z95.0 Presence of cardiac pacemaker; Z90.89 Acquired absence of other organs; Z95.2 Presence of prosthetic heart valve; Z79.82 Long term (current) use of aspirin; Z98.890 Other specified postprocedural states; Z79.899 Other long term (current) drug therapy; Z79.01 Long term (current) use of anticoagulants; Z79.51 Long term (current) use of inhaled steroids; Z98.49 Cataract extraction status, unspecified eye; Z90.710 Acquired absence of both cervix and uterus; Z87.440 Personal history of urinary (tract) infections; Z90.49 Acquired absence of other specified parts of digestive tract
CPT/HCPCS: 36415; 71045; 80053; 81001; 83605; 83735; 83880; 84484; 85025; 85379; 85610; 87040; 87804; 93005; 93010; 94640; 96365; 96375; 99236; 99285-25; A9270-GY; J0692; J1940; J3490; J7040; J7620-GY; U0002

== ENCOUNTER 2023-11-10 14:39 | Observation (INO) | payer MEDICARE, OTHER ==
[2023-11-10 15:56] LABS: SODIUM,NA 135 mEq/L (136-145)
[2023-11-10 15:57] LABS: ALANINE AMINOTRANSFERASE,ALT 12 U/L (12-78); ALKALINE PHOSPHATASE 115 U/L (46-116); ASPARTATE AMNIOTRANSFERASE,AST 24 U/L (15-37); BLOOD UREA NITROGEN,BUN 23 mg/dL (7-18); CALCIUM 8.7 mg/dL (8.4-10.1); CARBON DIOXIDE,CO2 28 mmol/L (21-32); CHLORIDE,CL 99 mEq/L (98-106); CREATININE 0.9 mg/dL (0.6-1.0); ESTIMATED GFR 62 mL/min (>=60); GLUCOSE RANDOM 118 mg/dL (75-99); POTASSIUM,K 4.1 mEq/L (3.5-5.0); PROTEIN TOTAL,TP 6.6 g/dL (6.4-8.2)
[2023-11-10 15:58] LABS: HEMATOCRIT 33.9 % (37.0-47.0); HEMOGLOBIN 11.2 g/dL (12.0-16.0); MEAN CORPUSCULAR HEMOGLOBIN 35.1 pg (27.0-32.0); MEAN CORPUSCULAR VOLUME 106.3 fL (83.0-97.0); PLATELET COUNT,PLT 219 10^3/uL (150-400); PRO B-TYPE NATRIUR PEPT,BNPPRO 5098 pg/mL (0-1000); RED BLOOD CELL COUNT 3.19 x10^6/uL (4.00-5.50); WHITE BLOOD CELL COUNT,WBC 5.4 10^3/uL (4.0-11.0)
[2023-11-10 15:59] LABS: BASOPHILS ABSOLUTE AUTO 0.06 10^3/uL (0.00-0.50); BASOPHILS PERCENT AUTO 1.1 % (0-1); EOSINOPHILS ABSOLUTE AUTO 0.28 10^3/uL (0.00-1.50); EOSINOPHILS PERCENT AUTO 5.2 % (0-6); IMMATURE GRAN ABSOLUTE AUTO 0.03 10^3/uL (0.00-0.49); IMMATURE GRAN PERCENT AUTO 0.6 % (0.0-4.9); LYMPHOCYTES ABSOLUTE AUTO 1.03 10^3/uL (0.60-5.00); MONOCYTES PERCENT AUTO 16.6 % (0-10); NEUTROPHILS ABSOLUTE AUTO 3.13 x10^3/uL (1.80-8.00); NEUTROPHILS PERCENT AUTO 57.5 % (41-71)
[2023-11-10] MEDS ORDERED: Acetaminophen/HYDROcodone 325-5 MG Tab PO PRN (16:21)
[2023-11-10] MEDS ORDERED: Ondansetron 4 MG/2 ML SDV IV PRN (16:21)
[2023-11-10] MEDS ORDERED: Ondansetron 4 MG Tab.DIS PO PRN (16:21)
[2023-11-10] MEDS ORDERED: Acetaminophen 325 MG Tab PO PRN (16:21)
[2023-11-10] MEDS ORDERED: HYDROXYZINE HCL 10 MG PO PRN (16:29)
[2023-11-10] MEDS: Furosemide 40 MG/4 ML VIAL IVPUSH ONE (17:11)
[2023-11-10] MEDS: Lidocaine 4% 1 each Patch TOP PRN (17:16)
[2023-11-10] MEDS: traMADol 50 MG Tab PO PRN (17:19)
[2023-11-10] MEDS: Acetaminophen 325 MG Tab PO SCH (19:34)
[2023-11-10] MEDS: Hypromellose 0.3% Ophth Soln 15 ML Bottle EYEBOTH SCH (19:35)
[2023-11-10] MEDS: Simvastatin 20 MG Tab PO SCH (19:35)
[2023-11-10] MEDS: Sertraline 25 MG Tab PO SCH (19:35)
[2023-11-11] MEDS: Levothyroxine 125 MCG Tab PO SCH (06:57)
[2023-11-11 07:28] LABS: BASOPHILS ABSOLUTE AUTO 0.05 10^3/uL (0.00-0.50); BASOPHILS PERCENT AUTO 1.1 % (0-1); EOSINOPHILS ABSOLUTE AUTO 0.35 10^3/uL (0.00-1.50); EOSINOPHILS PERCENT AUTO 7.9 % (0-6); HEMATOCRIT 31.6 % (37.0-47.0); HEMOGLOBIN 10.7 g/dL (12.0-16.0); IMMATURE GRAN ABSOLUTE AUTO 0.02 10^3/uL (0.00-0.49); IMMATURE GRAN PERCENT AUTO 0.5 % (0.0-4.9); LYMPHOCYTES ABSOLUTE AUTO 0.93 10^3/uL (0.60-5.00); LYMPHOCYTES PERCENT AUTO 21.1 % (24-44); MEAN CORPUSCULAR HEMOGLOBIN 35.5 pg (27.0-32.0); MEAN CORPUSCULAR HGB CONC 33.9 g/dL (32.0-36.0); MONOCYTES PERCENT AUTO 15.9 % (0-10); NEUTROPHILS ABSOLUTE AUTO 2.36 x10^3/uL (1.80-8.00); NEUTROPHILS PERCENT AUTO 53.5 % (41-71); PLATELET COUNT,PLT 214 10^3/uL (150-400); RED BLOOD CELL COUNT 3.01 x10^6/uL (4.00-5.50); WHITE BLOOD CELL COUNT,WBC 4.4 10^3/uL (4.0-11.0)
[2023-11-11] MEDS: Multivitamins with Iron/Calcium/Folic Acid/Minerals Tab PO SCH (07:32)
[2023-11-11] MEDS: Cholecalciferol (Vitamin D3) 5,000 UNIT Tab PO SCH (07:32)
[2023-11-11] MEDS: Allopurinol 300 MG Tab PO SCH (07:32)
[2023-11-11] MEDS: Ascorbic Acid 500 MG Tab PO SCH (07:32)
[2023-11-11] MEDS: Aspirin 81 MG Tab.EC PO SCH (07:33)
[2023-11-11] MEDS: Furosemide 40 MG/4 ML VIAL IVPUSH SCH (07:33)
[2023-11-11] MEDS: Metoprolol Succinate 25 MG Tab.ER PO SCH (07:43)
[2023-11-11 07:46] LABS: INR 2.58 (0.92-1.18); PROTHROMBIN TIME 25.9 SEC (9.3-11.3)
[2023-11-11 08:16] LABS: CALCIUM 8.4 mg/dL (8.4-10.1); CREATININE 0.8 mg/dL (0.6-1.0); EST CRCL DRUG DOSING (CG) 45.42 mL/min; POTASSIUM,K 3.7 mEq/L (3.5-5.0)
[2023-11-11 09:03] LABS: APPEARANCE,URINE CLEAR (CLEAR); BILIRUBIN,URINE NEGATIVE (NEGATIVE); COLOR,URINE YELLOW (YELLOW); GLUCOSE,URINE NEGATIVE (NEGATIVE); KETONES,URINE NEGATIVE (NEGATIVE); LEUKOCYTE ESTERASE,URINE TRACE (NEGATIVE); NITRITE,URINE NEGATIVE (NEGATIVE); OCCULT BLOOD,URINE NEGATIVE (NEGATIVE); PH,URINE 6.5 (4.5-8.0); PROTEIN,URINE NEGATIVE (NEGATIVE); UROBILINOGEN,URINE 0.2 EU/dL (0.2-1.0)
[2023-11-11 09:13] LABS: BACTERIA,URINE OCCASIONAL /HPF (NOT SEEN); RBC,URINE 0-5 /HPF (0-5); SQUAMOUS EPITHELIAL CELLS,UR OCCASIONAL /HPF (NOT SEEN); WBC,URINE 0-5 /HPF (0-5)
[2023-11-11] MEDS: Warfarin** 1 MG TABLET PO SCH (11:54)
[2023-11-12 05:38] VITALS: PULSE 60
[2023-11-12 07:18] LABS: BASOPHILS ABSOLUTE AUTO 0.05 10^3/uL (0.00-0.50); BASOPHILS PERCENT AUTO 1.3 % (0-1); EOSINOPHILS PERCENT AUTO 7.8 % (0-6); HEMOGLOBIN 10.7 g/dL (12.0-16.0); IMMATURE GRAN ABSOLUTE AUTO 0.02 10^3/uL (0.00-0.49); IMMATURE GRAN PERCENT AUTO 0.5 % (0.0-4.9); LYMPHOCYTES ABSOLUTE AUTO 0.94 10^3/uL (0.60-5.00); LYMPHOCYTES PERCENT AUTO 24.3 % (24-44); MEAN CORPUSCULAR HEMOGLOBIN 35.4 pg (27.0-32.0); MEAN CORPUSCULAR HGB CONC 33.4 g/dL (32.0-36.0); MONOCYTES ABSOLUTE AUTO 0.59 10^3/uL (0.00-1.50); MONOCYTES PERCENT AUTO 15.2 % (0-10); NEUTROPHILS ABSOLUTE AUTO 1.97 x10^3/uL (1.80-8.00); NEUTROPHILS PERCENT AUTO 50.9 % (41-71); PLATELET COUNT,PLT 203 10^3/uL (150-400); RED BLOOD CELL COUNT 3.02 x10^6/uL (4.00-5.50); WHITE BLOOD CELL COUNT,WBC 3.9 10^3/uL (4.0-11.0)
[2023-11-12 07:20] LABS: CALCIUM 8.5 mg/dL (8.4-10.1); CREATININE 0.9 mg/dL (0.6-1.0); EST CRCL DRUG DOSING (CG) 40.38 mL/min; POTASSIUM,K 3.8 mEq/L (3.5-5.0)
[2023-11-12 11:52] VITALS: BP 101/52
[2023-11-12] MEDS: Warfarin 2 MG Tab PO SCH (12:34)
== END 2023-11-12 13:30 | disposition home or self-care (01) ==
LOC: CC.FCMC 14:39 → CC.MS 14:57 → UNDOADMOB 14:57 → CC.MS 16:21
PROVIDERS: ADMIT Nurse Practitioner Family; ATTEND Nurse Practitioner Family
DX: I50.23 Acute on chronic systolic (congestive) heart failure (principal); I48.20 Chronic atrial fibrillation, unspecified; M54.50 Low back pain, unspecified; Z79.82 Long term (current) use of aspirin; Z79.01 Long term (current) use of anticoagulants; Z79.899 Other long term (current) drug therapy
CPT/HCPCS: 36415; 71046; 72100; 80048; 80053; 81001; 83880; 84484; 85025; 85610; 93005; 96374; 96376; 97110-GP; 97161-GP; A9270-GY; G0378; J1940

== ENCOUNTER 2024-09-27 16:04 | Inpatient (IN) | payer MEDICARE, OTHER ==
[2024-09-27] MEDS ORDERED: Sodium Chloride 0.9% 10 ML Syringe FLUSH PRN (16:39)
[2024-09-27] MEDS ORDERED: Ondansetron 4 MG/2 ML SDV IV PRN (16:39)
[2024-09-27] MEDS ORDERED: Ondansetron 4 MG Tab.DIS PO PRN (16:39)
[2024-09-27 17:15] LABS: INR 3.26 (0.92-1.18); PROTHROMBIN TIME 31.1 SEC (9.3-11.3)
[2024-09-27] MEDS: Bumetanide 2.5 MG/10 ML MDV IVPUSH ONE (17:21)
[2024-09-27] MEDS: [UNRECOGNIZED DRUG - REMARK] PO ONE (17:48)
[2024-09-27] MEDS ORDERED: Warfarin** 1 MG TABLET PO SCH (18:00)
[2024-09-27] MEDS: Sertraline 25 MG Tab PO SCH (19:55)
[2024-09-27] MEDS: Acetaminophen 325 MG Tab PO SCH (19:55)
[2024-09-27] MEDS ORDERED: Simvastatin 20 MG Tab PO SCH (20:00)
[2024-09-27] MEDS: Simvastatin 10 MG Tab PO SCH (20:24)
[2024-09-27] MEDS: Oxyquinoline/Emollient 0.3% Oint 4 OZ Canister TOP PRN (22:24)
[2024-09-28] MEDS: Levothyroxine 125 MCG Tab PO SCH (06:50)
[2024-09-28 07:30] LABS: BASOPHILS ABSOLUTE AUTO 0.05 10^3/uL (0.00-0.50); BASOPHILS PERCENT AUTO 1.2 % (0-1); EOSINOPHILS ABSOLUTE AUTO 0.28 10^3/uL (0.00-1.50); EOSINOPHILS PERCENT AUTO 6.5 % (0-6); HEMATOCRIT 28.8 % (37.0-47.0); HEMOGLOBIN 9.5 g/dL (12.0-16.0); IMMATURE GRAN ABSOLUTE AUTO 0.01 10^3/uL (0.00-0.49); IMMATURE GRAN PERCENT AUTO 0.2 % (0.0-4.9); LYMPHOCYTES ABSOLUTE AUTO 1.09 10^3/uL (0.60-5.00); LYMPHOCYTES PERCENT AUTO 25.3 % (24-44); MEAN CORPUSCULAR HEMOGLOBIN 37.5 pg (27.0-32.0); MEAN CORPUSCULAR VOLUME 113.8 fL (83.0-97.0); MONOCYTES ABSOLUTE AUTO 0.67 10^3/uL (0.00-1.50); MONOCYTES PERCENT AUTO 15.5 % (0-10); NEUTROPHILS ABSOLUTE AUTO 2.21 x10^3/uL (1.80-8.00); NEUTROPHILS PERCENT AUTO 51.3 % (41-71); PLATELET COUNT,PLT 107 10^3/uL (150-400); RED BLOOD CELL COUNT 2.53 x10^6/uL (4.00-5.50); WHITE BLOOD CELL COUNT,WBC 4.3 10^3/uL (4.0-11.0)
[2024-09-28 07:34] LABS: ALBUMIN 2.9 g/dL (3.4-5.0); BILIRUBIN TOTAL 1.4 mg/dL (0.0-1.0); C-REACTIVE PROTEIN 0.58 mg/dL (<=0.50); CALCIUM 9.5 mg/dL (8.4-10.1); CREATININE 1.8 mg/dL (0.6-1.0); EST CRCL DRUG DOSING (CG) 19.81 mL/min; POTASSIUM,K 3.7 mEq/L (3.5-5.0)
[2024-09-28] MEDS: Metoprolol Succinate 25 MG Tab.ER PO SCH (07:55)
[2024-09-28] MEDS: Metolazone 5 MG Tab PO SCH (07:55)
[2024-09-28] MEDS: Aspirin 81 MG Tab.EC PO SCH (07:55)
[2024-09-28] MEDS: Multivitamins with Iron/Calcium/Folic Acid/Minerals Tab PO SCH (07:55)
[2024-09-28] MEDS: Allopurinol 100 MG Tab PO SCH (07:56)
[2024-09-28] MEDS: Bumetanide 2.5 MG/10 ML MDV IVPUSH SCH (07:58)
[2024-09-28] MEDS: Hypromellose 0.3% Ophth Soln 15 ML Bottle EYEBOTH SCH (08:53)
[2024-09-28] MEDS: Potassium Chloride 20 MEQ Tab.ER PO ONE (09:47)
[2024-09-28 09:48] LABS: INR 3.31 (0.92-1.18); PROTHROMBIN TIME 31.5 SEC (9.3-11.3)
[2024-09-28] MEDS: Warfarin** 1 MG TABLET PO ONE (17:19)
[2024-09-28] MEDS: Simvastatin 20 MG Tab PO SCH (19:30)
[2024-09-28] MEDS: Potassium Chloride 20 MEQ Tab.ER PO SCH (19:31)
[2024-09-29] MEDS: Acetaminophen 325 MG Tab PO PRN (03:47)
[2024-09-29] MEDS: Loperamide 2 MG Cap PO PRN (07:49)
[2024-09-29 08:22] LABS: BASOPHILS ABSOLUTE AUTO 0.07 10^3/uL (0.00-0.50); BASOPHILS PERCENT AUTO 1.3 % (0-1); EOSINOPHILS ABSOLUTE AUTO 0.29 10^3/uL (0.00-1.50); EOSINOPHILS PERCENT AUTO 5.2 % (0-6); HEMATOCRIT 31.1 % (37.0-47.0); HEMOGLOBIN 10.3 g/dL (12.0-16.0); IMMATURE GRAN ABSOLUTE AUTO 0.02 10^3/uL (0.00-0.49); IMMATURE GRAN PERCENT AUTO 0.4 % (0.0-4.9); LYMPHOCYTES ABSOLUTE AUTO 1.56 10^3/uL (0.60-5.00); LYMPHOCYTES PERCENT AUTO 28.1 % (24-44); MEAN CORPUSCULAR HEMOGLOBIN 37.9 pg (27.0-32.0); MEAN CORPUSCULAR HGB CONC 33.1 g/dL (32.0-36.0); MEAN CORPUSCULAR VOLUME 114.3 fL (83.0-97.0); MONOCYTES ABSOLUTE AUTO 0.85 10^3/uL (0.00-1.50); MONOCYTES PERCENT AUTO 15.3 % (0-10); NEUTROPHILS ABSOLUTE AUTO 2.76 x10^3/uL (1.80-8.00); NEUTROPHILS PERCENT AUTO 49.7 % (41-71); PLATELET COUNT,PLT 124 10^3/uL (150-400); RED BLOOD CELL COUNT 2.72 x10^6/uL (4.00-5.50); WHITE BLOOD CELL COUNT,WBC 5.6 10^3/uL (4.0-11.0)
[2024-09-29 08:35] LABS: INR 3.03 (0.92-1.18)
[2024-09-29 08:47] LABS: ALBUMIN 3.2 g/dL (3.4-5.0); BILIRUBIN TOTAL 1.5 mg/dL (0.0-1.0); C-REACTIVE PROTEIN 0.58 mg/dL (<=0.50); CALCIUM 9.3 mg/dL (8.4-10.1); CREATININE 2.1 mg/dL (0.6-1.0); EST CRCL DRUG DOSING (CG) 16.98 mL/min; POTASSIUM,K 4.7 mEq/L (3.5-5.0); PROTEIN TOTAL,TP 6.5 g/dL (6.4-8.2)
[2024-09-29] MEDS: Warfarin** 1 MG TABLET PO ONE (17:42)
[2024-09-30 07:36] LABS: BASOPHILS ABSOLUTE AUTO 0.07 10^3/uL (0.00-0.50); BASOPHILS PERCENT AUTO 1.6 % (0-1); EOSINOPHILS ABSOLUTE AUTO 0.27 10^3/uL (0.00-1.50); EOSINOPHILS PERCENT AUTO 6.2 % (0-6); HEMATOCRIT 29.2 % (37.0-47.0); HEMOGLOBIN 9.7 g/dL (12.0-16.0); IMMATURE GRAN ABSOLUTE AUTO 0.02 10^3/uL (0.00-0.49); IMMATURE GRAN PERCENT AUTO 0.5 % (0.0-4.9); LYMPHOCYTES ABSOLUTE AUTO 1.23 10^3/uL (0.60-5.00); LYMPHOCYTES PERCENT AUTO 28.1 % (24-44); MEAN CORPUSCULAR HEMOGLOBIN 37.7 pg (27.0-32.0); MEAN CORPUSCULAR HGB CONC 33.2 g/dL (32.0-36.0); MEAN CORPUSCULAR VOLUME 113.6 fL (83.0-97.0); MONOCYTES ABSOLUTE AUTO 0.72 10^3/uL (0.00-1.50); MONOCYTES PERCENT AUTO 16.4 % (0-10); NEUTROPHILS ABSOLUTE AUTO 2.07 x10^3/uL (1.80-8.00); NEUTROPHILS PERCENT AUTO 47.2 % (41-71); PLATELET COUNT,PLT 109 10^3/uL (150-400); RED BLOOD CELL COUNT 2.57 x10^6/uL (4.00-5.50); WHITE BLOOD CELL COUNT,WBC 4.4 10^3/uL (4.0-11.0)
[2024-09-30 08:24] LABS: INR 2.47 (0.92-1.18)
[2024-09-30 08:53] LABS: ALBUMIN 2.9 g/dL (3.4-5.0); BILIRUBIN TOTAL 1.4 mg/dL (0.0-1.0); C-REACTIVE PROTEIN 0.54 mg/dL (<=0.50); CALCIUM 9.4 mg/dL (8.4-10.1); CREATININE 2.1 mg/dL (0.6-1.0); EST CRCL DRUG DOSING (CG) 16.98 mL/min; POTASSIUM,K 4.7 mEq/L (3.5-5.0); PROTEIN TOTAL,TP 5.9 g/dL (6.4-8.2)
[2024-09-30 13:42] VITALS: BP 92/45; PULSE 67
== END 2024-09-30 13:40 | disposition home or self-care (01) | DRG 293 ==
LOC: UNDOADMIN 16:04 → CC.MS 16:04
PROVIDERS: ADMIT Nurse Practitioner Family; ATTEND Nurse Practitioner Family
DX: I50.23 Acute on chronic systolic (congestive) heart failure (principal); Z66 Do not resuscitate; H54.7 Unspecified visual loss; M19.90 Unspecified osteoarthritis, unspecified site; M54.9 Dorsalgia, unspecified; G89.29 Other chronic pain; E87.5 Hyperkalemia; F41.9 Anxiety disorder, unspecified; F32.A Depression, unspecified; E03.9 Hypothyroidism, unspecified; Z95.2 Presence of prosthetic heart valve; Z95.0 Presence of cardiac pacemaker; Z90.710 Acquired absence of both cervix and uterus; Z79.01 Long term (current) use of anticoagulants; Z98.49 Cataract extraction status, unspecified eye; Z79.82 Long term (current) use of aspirin; Z88.8 Allergy status to other drugs, medicaments and biological substances; Z90.49 Acquired absence of other specified parts of digestive tract; Z88.0 Allergy status to penicillin; Z88.2 Allergy status to sulfonamides; Z79.899 Other long term (current) drug therapy; Z96.659 Presence of unspecified artificial knee joint
CPT/HCPCS: 36415; 71045; 80053; 85025; 85610; 86140; 87045; 87046; 87493; 87899; 93005; 97110-GP; 97161-GP; A9270-GY; J1939